=== PATIENT | female | born 1965 | race Caucasian/White ===

== ENCOUNTER → 2017-12-13 09:09 | Outpatient (CLI) | payer BC, SELFPAY ==
--- NOTE | 2017-12-13 09:19 | XR_ITS ---
XR chest 2V HISTORY: ITS.REASON: CHEST PAIN ORDERING PHYSICIAN: Jaskaran Guerra PATIENT AGE: 52 years COMPARISON: None FINDINGS: The cardiomediastinal silhouette and pulmonary vascularity are within normal limits. There are several left-sided small pulmonary nodules which are felt to be due to calcified granulomas. This could be confirmed with CT clinically warranted.. The right lung is clear. No lobar consolidation or collapse. No acute bony anomalies. IMPRESSION: Old granulomatous disease, no acute finding
== END ==
PROVIDERS: PCP Internal Medicine; Referring Provider Internal Medicine; Visit Provider Internal Medicine
DX: R07.9 Chest pain, unspecified (principal)
CPT/HCPCS: 71046; 93005

== ENCOUNTER 2020-03-08 18:54 | Emergency (ER) | payer BC, SELFPAY ==
[2020-03-08 19:15] VITALS: BP 155/81; PULSE 91; RESP 18; TEMP 37.1; O2SAT 99; BMI 32.3
--- NOTE | 2020-03-08 19:22 | HMH.EDUTC ---
[facility] Disposition Clinical Impression: Influenza A, Encounter for laboratory testing for COVID-19 virus Disposition: Home, Self-Care Condition on Discharge: Good Instructions: Preventing the Spread of Coronavirus Discharge Instructions, Influenza, How to Avoid a Cold or Flu Additional Instructions: ? Too late to start Tamiflu. Most effective when started within 48 hours of symptoms onset ? Lots of rest ? Increase Fluids water, Gatorade, powerade, pedialyte,if infant/toddler/child ? Alternate Tylenol and / or ibuprofen as discussed for fever, aches, chills Follow up IMMEDIATELY with your family doctor for new or worsening Symptoms OR no noticeable improvement over the next 48-72 hours, 911 for difficulty or breathing ? You or your child area contagious until no fever, aches, chills for 24 hours with medication for symptoms ? Help Prevent the spread of influenza: ? Wash your hands often. Use soap and water. Wash your hands after you use the bathroom, change a child's diapers, or sneeze. Wash your hands before you prepare or eat food. Use gel hand cleanser that has 60% alcohol, when soap and water are not available. Do not touch your eyes, nose, or mouth unless you have washed your hands first. ? Cover your mouth when you sneeze or cough. Cough into a tissue or the bend of your arm. If you use a tissue, throw it away immediately and wash your hands. ? Clean shared items with a germ-killing glass mould cleaner. Clean table surfaces, doorknobs, and light switches. Do not share towels, silverware, and dishes with people who are sick. Wash bed sheets, towels, silverware, and dishes with soap and water. ? Wear a mask over your mouth and nose if you are sick. The face mask may help protect others from becoming infected with the flu. Wear the mask when in common areas of your home or if you seek care with a healthcare provider. ? Stay away from others if you are sick. Stay at home until 24 hours after your fever and symptoms are gone. You was tested for today for COVID19 your test result should be back in the next 24-48 hours, you may call to the [facility] tomorrow to see if your test results are back however could take up to 48 hours before results are back [phone] [facility] hours are 9am-9pm You was given a handout with instructions for Self Quarantine and Self isolation for while you wait on test results and what to do if they are positive If you are positive the Health Dept will be contacting you also Prescriptions: Fluticasone Propionate [Flonase 50mcg nasal spray 16gm] 1 spr NS DAILY #1 bottle Transmission Status: Pending to [facility] Benzonatate [Tessalon Perle 100mg Cap*] 100 mg PO TID PRN #15 cap PRN Reason: Cough Transmission Status: Pending to [facility] Referrals: Nesha Win MD [Primary Care Provider] - As needed Forms: Work/School Release Time of Disposition: 19:43 Medical Decision Making - Juan F Inquiry Pt receiving controlled substance: No Juan F was queried for this patient: No Vital Signs: 03/08/20 19:15 03/08/20 19:36 Temperature 98.7 F 98.7 F Temperature Source Oral Pulse Rate 91 H Pulse Rate [Left] 91 H Respiratory Rate 18 18 Blood Pressure 155/81 H Blood Pressure [Right Arm] 155/81 H Blood Pressure Mean [Right Arm] 105 Blood Pressure Source [Right Arm] Manual Cuff/ Doppler Blood Pressure Position [Right Arm] Sitting 02 Sat by Pulse Oximetry 99 Oxygen Delivery Method Room Air - Lab Data Lab results reviewed: Yes: I reviewed the patient's lab results. Orders (Tests/Meds): ORDERS Category Date Time Status Covid-19 Nasal PCR Sendout Willie Stat Lab 03/08/20 19:23 Ordered Medical Decision Narrative: Discussed Tamiflu and fact that patient has not been feeling well for longer than 48 hours and patient declined tamiflu [facility] HPI - General Stated complaint: cough,muscle pain Time Seen by Provider: 03/08/20 19:22 Mode of Arrival: Ambulatory Source of Information: Patient Limitati
[2020-03-08 19:36] VITALS: BP 155/81; PULSE 91; RESP 18; TEMP 37.1; O2SAT 99
[2020-03-08 19:46] LABS: UTC Influenza A Antigen Positive (Negative)
[2020-03-08 19:47] LABS: UTC Influenza B Antigen Negative (Negative)
[2020-03-10 13:27] LABS: Covid-19 Nasal PCR Sendout Lex NOT DETECTED
== END 2020-03-08 19:46 | disposition home or self-care (01) ==
PROVIDERS: Emergency Provider Nurse Practitioner; PCP Internal Medicine
DX: J10.1 Influenza due to other identified influenza virus with other respiratory manifestations (principal); Z20.828 Contact with and (suspected) exposure to other viral communicable diseases; Z88.0 Allergy status to penicillin
CPT/HCPCS: 87804; 99201; U0004

== ENCOUNTER → 2021-05-18 10:02 | Outpatient (CLI) | payer BC, SELFPAY ==
[2021-05-18 10:33] LABS: Basophils # 0.1 K/mm3 (0-0.2); Basophils % 1.6 % (0.1-2.0); Eosinophils # 0.2 K/mm3 (0.0-0.4); Eosinophils % 3.2 % (0.1-12.0); Hematocrit 42.3 % (37.0-47.0); Hemoglobin 13.4 g/dL (12.2-16.2); Lymphocytes % 32.6 % (10-50); Mean Corpuscular HGB Conc 31.7 g/dL (31.8-35.4); Mean Corpuscular Hemoglobin 27.4 pg (27.0-31.2); Mean Corpuscular Volume 86.3 fl (81-99); Mean Platelet Volume 7.6 fl (7.4-10.4); Monocytes # 0.3 K/mm3 (0.1-1.0); Neutrophils # 3.6 K/mm3 (1.8-7.8); Neutrophils % 57.5 % (37.0-80.0); Platelet Count 329 K/mm3 (142-424); Red Cell Distribution Width 14.2 % (11.5-17.5); White Blood Count 6.2 K/mm3 (4.8-10.8)
[2021-05-18 11:22] LABS: Alanine Aminotransferase 13 U/L (12-78); Albumin Level 3.8 g/dl (3.5-5.0); Albumin/Globulin Ratio 1.5 (1.1-1.8); Alkaline Phosphatase 105 U/L (38-126); Anion Gap 8.3 mEq/L (5-15); Aspartate Amino Transferase 23 U/L (14-36); Bilirubin,Total 0.8 mg/dl (0.2-1.3); Blood Urea Nitrogen 15 mg/dl (7-17); Calcium 8.7 mg/dl (8.4-10.2); Carbon Dioxide 31 mmol/L (22.0-30.0); Chloride 106 mmol/L (98-107); Estimated Glomerular Filt Rate 65 ml/min (>60); GFR (African American) 79 ML/MIN (>60); Globulin 2.6 g/dL (1.3-3.2); Glucose 96 mg/dl (74-100); Potassium 4.3 mmoL/L (3.5-5.1); Sodium 141 mmol/L (136-145); Total Protein,Serum 6.4 g/dl (6.3-8.2)
[2021-05-18 11:28] LABS: C-Reactive Protein 6.9 mg/L (0-4)
[2021-05-18 12:50] LABS: Erythrocyte Sedimentation Rate 26 mm/hr (0-30)
== END ==
PROVIDERS: PCP Internal Medicine; Visit Provider Internal Medicine
DX: M35.9 Systemic involvement of connective tissue, unspecified (principal); Z79.899 Other long term (current) drug therapy
CPT/HCPCS: 36415; 80053; 85025; 85651; 86140

== ENCOUNTER 2023-10-04 18:15 | Emergency (ER) | payer BC, SELFPAY ==
[2023-10-04 18:16] VITALS: BP 124/92; PULSE 88; RESP 20; TEMP 36.6; O2SAT 98; BMI 30.2
--- NOTE | 2023-10-04 18:37 | XR_ITS ---
PROCEDURE INFORMATION: Exam: XR Right Elbow Exam date and time: 10/04/2023 6:44 PM Age: 58 years old Clinical indication: Injury or trauma; Fall; Blunt trauma (contusions or hematomas); Shoulder; Right; Additional info: Fall, right elbow pain TECHNIQUE: Imaging protocol: Radiologic exam of the right elbow. Views: 3 or more views. COMPARISON: CR XR HUMERUS RT 04/10/2023 18:44 FINDINGS: Bones/joints: No acute fracture or dislocation. Soft tissues: Normal. IMPRESSION: No acute fracture or dislocation.
--- NOTE | 2023-10-04 18:37 | XR_ITS ---
PROCEDURE INFORMATION: Exam: XR Right Humerus Exam date and time: 10/04/2023 6:44 PM Age: 58 years old Clinical indication: Injury or trauma; Fall; Blunt trauma (contusions or hematomas); Shoulder; Right; Additional info: Fall, posterior pain TECHNIQUE: Imaging protocol: Radiologic exam of the right humerus. Views: 2 or more views. COMPARISON: CR XR SHOULDER RT MIN 2V 04/10/2023 18:44 FINDINGS: Bones/joints: No acute fracture or dislocation. Soft tissues: Normal. IMPRESSION: No acute fracture or dislocation.
--- NOTE | 2023-10-04 18:37 | XR_ITS ---
PROCEDURE INFORMATION: Exam: XR Right Shoulder Exam date and time: 10/04/2023 6:44 PM Age: 58 years old Clinical indication: Injury or trauma; Fall; Blunt trauma (contusions or hematomas); Shoulder; Right; Additional info: Fall, R shoulder pain posteriorly TECHNIQUE: Imaging protocol: Radiologic exam of the right shoulder. Views: 2 or more views. COMPARISON: CR XR HUMERUS RT 04/10/2023 18:44 FINDINGS: Bones/joints: Moderate osteoarthrosis of the acromioclavicular joint. No acute fracture or dislocation. Soft tissues: Normal. IMPRESSION: No acute fracture or dislocation.
[2023-10-04] MEDS: LIDOCAINE 5% TRANSDERMAL PATCH 1 EACH TP (18:43)
[2023-10-04] MEDS: DEXAMETHASONE 4MG TABLET 10 MG PO (18:43)
[2023-10-04] MEDS: IBUPROFEN 600 MG TABLET PO (18:44)
[2023-10-04] MEDS: ACETAMINOPHEN 500MG TAB 1000 MG PO (18:44)
--- NOTE | 2023-10-04 18:54 | ED_ITS ---
Discharge Plan Disposition Patient Disposition: Home, Self-Care Prescriptions Prescriptions: New lidocaine 5 % adhesive patch,medicated 1 patch topical DAILY Qty: 30 0RF Rx Instructions: leave on most painful area for up to 12 hrs prednisone 20 mg tablet 40 mg PO DAILY 5 Days Qty: 10 0RF No Action azithromycin [Zithromax Z-Joe] 250 mg tablet See Rx Instructions PO .COMPLEX Qty: 6 0RF Rx Instructions: For 250 mg dose pack: take 500 mg today (day 1), then 250 mg for 4 days (days 2-5) PO oujspdkbikkoioq-qfoivlycx-PR [Bromfed DM] 2-30-10 mg/5 mL syrup 7.5 ml PO Q4-6H PRN (Reason: cold symptoms) Qty: 200 0RF Referrals Follow up/Referrals: Nesha Win MD [Primary Care Provider] - See instructions Activity Restrictions/Add. Instructions Additional Instructions/Restrictions: Call your family doctor to establish care for this visit to the emergency department and schedule follow-up within 48 hours to ensure improvement. If you have any worsening of your condition or any other concerning signs or symptoms, return to the emergency department or your primary care doctor for further evaluation. Clinical Impressions Clinical Impression: Acute pain of right shoulder, Neurapraxia of right upper extremity Discharge ED Provider: Fam Ruiz General Adult HPI General Chief complaint: Extremity Injury, Upper Stated complaint: Ao06/29@1800 fall RT shoulder inj Time Seen by Provider: 10/04/23 18:21 Mode of Arrival: Ambulatory Source of Information: Patient Limitations: No Limitations Description of Symptoms (Recalled from ER Triage Doc. by RN): pt got tripped and landed on right shoulder an now has pain in shoulder that radiates down into forearm. pt PMS intact, pt does have pain upon movement History of Present Illness HPI narrative: Please note that above description of symptoms, in this electronic medical record under categorization of recalled from ER triage doctor by RN are reflective of an initial nursing assessment, however, is not reflective of my full history and physical exam that was personally taken and clarified. Consequentially, this preceding description of symptoms, which may include the patient's categorized chief complaint in the EMR, do not reflect my personal clinical impression, and the ultimate description of history of present illness and patient stated complaints should be deferred to this section of the note. Unless stated otherwise or congruent with this section of the note, additional signs, symptoms, or incongruence should be interpreted as inaccurate with my clinical impression. Related Data Previous Rx's Medication Instructions Recorded azithromycin 250 mg tablet See Rx Instructions PO .COMPLEX #6 04/04/22 (Zithromax Z-Joe) tabs ykmhococirydswm-wzquuobsbjddfii-RC 7.5 ml PO Q4-6H PRN cold symptoms 04/04/22 2 mg-30 mg-10 mg/5 mL oral syrup #200 mL (Bromfed DM) lidocaine 5 % topical patch 1 patch topical DAILY #30 ea 10/04/23 prednisone 20 mg tablet 40 mg (2 x 20 mg) PO DAILY 5 days 10/04/23 #10 tabs Allergies Allergy/AdvReac Type Severity Reaction Status Date / Time Penicillins Allergy Mild Hives Verified 04/04/22 09:13 [facility] Disclaimer: The information contained in this section may have been updated after the patient was seen, as this information can be updated by other users. Social History Smoking Status: Never smoker second hand exposure: No alcohol intake: current alcohol intake frequency: a few times a month current occupational status: employed Travel in the last 8 weeks: None housing: house caffeine: Yes ROS Obtained: Yes All systems reviewed & no additional complaints except as documented Physical Exam General General appearance: alert and in no apparent distress Head Head exam: atraumatic and normocephalic Eye Eye exam: Present normal appearance, PERRL and EOMI ENT ENT exam: Present mucous membranes moist Neck Neck exam: Present normal inspection, full ROM and trachea midline Respiratory Respiratory exam: Absent respiratory distress, wheezes, stridor, accessory muscle use or prolonged expiratory phase Cardiovascular Cardiovascular exam: Present normal rhythm Abdominal Exam Abdominal exam: Present soft; Absent distention, tenderness, guarding, rebound or rigidity Extremities Exam Extremities exam: Present other (Severe pain with range of motion of shoulder including active and passive range of motion on the right side. Joint space intact, neurovascularly intact, no obvious outward signs of injury or deformity.); Absent edema Neurological Exam Neurological exam: Present alert, oriented X3, CN II-XII intact and normal gait; Absent motor sensory deficit Skin Skin exam: Present warm and dry; Absent diaphoresis or erythema Medical Decision Making Medical Records Medical records reviewed: Yes I reviewed the patient's medical records. Juan F Inquiry Pt receiving controlled substance: No Juan F was queried for this patient: No Vital Signs: 10/04/23 18:16 Temperature 97.9 F Temperature Source Oral Pulse Rate [Right Radial] 88 Respiratory Rate 20 Blood Pressure [Right Arm] 124/92 H Blood Pressure Mean [Right Arm] 102 02 Sat by Pulse Oximetry 98 Oxygen Delivery Method Room Air Orders (Tests/Meds): ED MEDICATIONS Discontinued Medications Generic Name Dose Route Start Last Admin Trade Name Conrad PRN Reason Stop Dose Admin Acetaminophen 1,000 mg 10/04/23 18:37 10/04/23 18:44 Acetaminophen 500mg Tab PO 10/04/23 18:38 1,000 mg ONCE ONE Administration Dexamethasone 10 mg 10/04/23 18:37 10/04/23 18:43 Dexamethasone 4mg Tablet PO 10/04/23 18:38 10 mg ONCE ONE Administration Ibuprofen 600 mg 10/04/23 18:37 10/04/23 18:44 Ibuprofen 600 Mg Tablet PO 10/04/23 18:38 600 mg ONCE ONE Administration Lidocaine 1 each 10/04/23 18:37 10/04/23 18:43 Lidocaine 5% Transdermal Patch TP 10/04/23 18:38 1 each ONCE ONE Administration ORDERS Category Date Time Status Elbow XR right minimum 3 views [XR elbow RT min 3V] Exams 10/04/23 18:37 Completed Stat Humerus XR right [XR humerus RT] Stat Exams 10/04/23 18:37 Taken Shoulder XR right miminum 2 views [XR shoulder RT min Exams 10/04/23 18:37 Completed 2V] Stat Medical Decision Narrative: 58-year-old female no relevant medical history presenting with right upper extremity pain. 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 Tripped over a rug. Landed on her right upper extremity with her elbow flexed at 90 degrees. Had immediate pain in the posterior aspect of her right shoulder that is sharp, burning, radiates from the back of her neck down posterior aspect of her right shoulder into her right elbow. No weakness, no neck pain, no loss of consciousness, no other concerns. Has not taken anything for pain. History was obtained via conversation with patient. On arrival, patient hemodynamically stable, alert, oriented x4, appropriate, GCS 15, moving all extremities spontaneously, pupils equal and reactive to light. Full physical exam performed and significant for intermittently having bouts of pain causing patient to brace her right shoulder. Ranging shoulder largely without issue including flexion, extension, but abduction is limited secondary to severe pain. Neurovascularly intact. No outward signs of injury or deformity. Not exacerbated with leaning her head away from the injury. Differential includes fracture, sprain, dislocation, neurovascular injury, among others. Patient given Tylenol, Motrin, Decadron, lidocaine patch. X-rays negative on independent rotation. On reevaluation, patient feeling much better. Pain is still there, but significantly decreased. Because patient at baseline without signs or symptoms of clinical decompensation, deemed appropriate for discharge. Results were relayed to patient who voiced understanding and were agreeable to outpatient management and follow up. I discussed my clinical impression with patient and answered all questions. At this time, the evidence for any other entities in the differential is insufficient to warrant any further testing or ED observation. This was explained as well. Advisory was given that persistent or worsening symptoms require further evaluation. I confirmed the understanding of this discussion. [employer] disclaimer Much of this encounter note is an electronic grants assistant spoken language to printed text. Electronic grants assistant of the spoken language may permit errors. Although I have reviewed the note, some errors may still exist. Critical Care Critical Care Time Critical Care Time: No
--- NOTE | 2023-10-04 19:24 | PC.NURSE ---
Rounded on patient, no needs at this time.
[2023-10-04 20:10] VITALS: BP 108/67; PULSE 104; RESP 20; TEMP 36.7; O2SAT 99
== END 2023-10-04 20:12 | disposition home or self-care (01) ==
PROVIDERS: Emergency Provider Emergency Medicine; PCP Internal Medicine
DX: M25.511 Pain in right shoulder (principal); S44.91XA Injury of unspecified nerve at shoulder and upper arm level, right arm, initial encounter; W01.10XA Fall on same level from slipping, tripping and stumbling with subsequent striking against unspecified object, initial encounter
CPT/HCPCS: 73030; 73060; 73080; 99283

== ENCOUNTER 2024-04-01 09:00 | Outpatient (RCR) | payer BC, SELFPAY | END 2024-04-01 23:59 | disposition home or self-care (01) | LOC: PT 09:00 | PROVIDERS: PCP Internal Medicine; Visit Provider Physician Assistant | DX: M17.11 Unilateral primary osteoarthritis, right knee (principal) | CPT/HCPCS: 97110; 97163; 97530 ==

== ENCOUNTER 2025-01-24 22:12 | Inpatient (IN) | payer BC, SELFPAY ==
--- OUTSIDE RECORDS SUMMARY | 2025-01-24 05:45 | XMS_ITS ---
Author Organization [facility] Address [address] [place] [address] Care Team Providers Care Mumps Developer Name Role Phone Hemant Ирина Unavailable [phone] REASON FOR VISIT Annual Social History Sex Assigned At : Social History Observation Description Sex Assigned At Female Encounters Encounter Location Date Provider Diagnosis [facility] [address] [place] [address] 01/24/2025 Ирина Marcos Plan Of Treatment Next Appt Details Provider Name:Ирина Marcos , 02/14/2025 02:15:00 PM, [address], [place], [address], Progress Notes * Eufemia CORREIA BDOB:[birth year] (59 yo F)Acc No.[id number]:01/24/2025 Progress Note Patient: Eufemia Roth Provider: Elliott Marcos MD :1965 A ge:59 Y S ex:Female Date:01/24/2025 Address:[address], [id number] Subjective: * Chief Complaints: * A nnual * Electronic signature of Radha Marcos MD on 01/25/2025 at 11:51 AM EDT Sign off status: Pending Visit Status: R /S (Rescheduled) * Provider: Elliott Marcos MD Date: 1 Generated for Madai lancastre/Leon/Adelaida on: 1 11:51 AM EDT
[2025-01-24 22:22] VITALS: BP 137/93; PULSE 79; RESP 18; TEMP 36.5; O2SAT 99; BMI 25.7
[2025-01-24 22:28] LABS: Microscopic, Urine URINE MICROSCOPIC (MICROSCOPIC)
--- OUTSIDE RECORDS SUMMARY | 2025-01-24 22:31 | XMS_ITS | Clinical Summary ---
Author Organization [facility] Address [address] [place] [address] Care Team Providers Care Business Reporter Name Role Phone Nesha Win MD Primary Care Provider [phone] Allergies Active Allergy Reactions Criticality Noted Date Comments Penicillins Rash Low 08/11/2018 Keflex ok to have Medications hepatitis A vaccine (VAQTA) 50 UNIT/ML injection Inject 1 mL into the appropriate muscle as directed by prescriber. Repeat in 6 months. 1 mL 1 02/16/2018 1:50 PM EST 8 Active buPROPion XL (WELLBUTRIN XL) 150 MG 24 hr tablet 9 Active celecoxib (CeleBREX) 200 MG capsule 150 mg Daily. 9 Active levothyroxine (SYNTHROID, LEVOTHROID) 100 MCG tablet 9 Active Liraglutide -Weight Management (SAXENDA SC) Inject under the skin into the appropriate area as directed. Active omeprazole (priLOSEC) 20 MG capsule Take 1 capsule by mouth Daily. Active cyclobenzaprine (FLEXERIL) 10 MG tablet Take 1 tablet by mouth 3 (Three) Times a Day As Needed for Muscle Spasms. 12 tablet 3 Active Active Problems No known active problems Immunizations Immunization Administration Dates Next Due COVID-19 (PFIZER) Purple Cap Monovalent 05/10/19 21,04/20/2020 Family History Medical History Relation Name Comments Osteoarthritis Father Cancer Mother Relation Name Status Comments Father Mother Social History Tobacco Use Types Packs/Day Years Used Date Smoking Tobacco: Never Smokeless Tobacco: Never Alcohol Use Standard Drinks/Week Comments Yes 0 (1 standard drink = 0.6 oz pur e alcohol) occ AUDIT-C Answer Date Recorded Frequency of Alcohol Consumption Never 08/11/2018 Average Number of Drinks Not on file 019 Frequency of Binge Drinking Not on file 10/2018 Abuse Screen Answer Date Recorded Feels Unsafe at Home or Work/School no 08/11/2022 Feels Threatened by Someone no 10/2022 Does Anyone Try to Keep You From Having Contact with Others or Doing Things Outside Your Home? no 08/11/2022 Physical Signs of Abuse Present no 08/11/2022 Comments No Sex and Gender Information Value Date Recorded Sex Assigned at Not on file Legal Sex Female 11:26 AM EDT Gender Identity Not on file Sexual Orientation Not on file Last Filed Vital Signs Vital Sign Reading Time Taken Comments Blood Pressure 161/94 08/11/2022 10:58 AM EDT Pulse 84 08/11/2022 10:58 AM EDT Temperature 36.4 C (97.5 F) 08/11/2022 10:58 AM EDT Respiratory Rate 16 08/11/2022 10:58 AM EDT Oxygen Saturation 98% 08/11/2022 10:58 AM EDT Inhaled Oxygen Concentration - - Weight 77.6 kg (171 lb) 02/16/2024 10:55 AM EST Height 165.1 cm (5' 5 ) 02/16/2024 10:55 AM EST Body Mass Index 28.46 02/16/2024 10:55 AM EST Plan of Treatment Health Maintenance Due Date Last Done Comments Annual Gynecologic Pelvic an d Breast Exam 1965 MAMMOGRAM 2005 COLOGUARD 2010 COLON CANCER SCREENING 5 YEA R SIGMOIDOSCOPY 2010 COLONOSCOPY 2010 [address] CANCER SCREENING 2010 CT COLONOGRAPHY 2010 FECAL OCCULT BLOOD TEST 2010 FIT Testing (1 year) 2010 Pneumococcal Vaccine 50+ (1 of 1 - PCV) 2015 ANNUAL PHYSICAL 08/07/2018 HEPATITIS C SCREENING 08/07/2018 PT PLAN OF CARE 02/28/2019 11/30/2018 INFLUENZA VACCINE 11/05/2024 01/14/2023, 04/07/2021 TDAP/TD VACCINES (2 - Td or Tdap) 04/07/2031 022 ZOSTER VACCINE Completed 04/07/2021, 06/0 04/2020, 02/18/2019 Insurance [id number] PPO Care Teams Business Reporter Relationship Specialty Start Date End Date Nesha Win MD [address] [place] [address] PCP - General Internal Medicine 08/11/18
[2025-01-24 22:32] LABS: Bilirubin,Urine Negative (Negative); Color,Urine YELLOW (Yellow); Glucose,Urine (UA) Negative (Negative); Ketones,Urine TRACE (Negative); Leukocyte Esterase,Urine TRACE (Negative); PH,Urine 6.0 (5.0-8.5); Protein,Urine Negative (Negative); Specific Gravity, Urine 1.020 (1.005-1.030); Urobilinogen,Urine 0.2 EU/dl (0.2)
--- OUTSIDE RECORDS SUMMARY | 2025-01-24 22:33 | XMS_ITS | Patient Health Record ---
Author Organization [facility] Address [address] [place] [address] Care Team Providers Care Business Planning Director Name Role Phone Ирина Marcos Unavailable [phone] Bethanie Romero Unavailable [phone] Allergies Allergen (clinical drug ingredient) Drug/Non Drug Allergy documented on EMR Reaction Allergy Type Onset Date Status PENICILLIN V POTASSI UM (PENICILLIN V POTASSIUM TAB rash Drug Allergy Active Results Component Value Reference Range Notes MRI BREAST BILATERAL SCREENI NG W WO CONTRAST Reviewed date:02/26/2024 01:55:32 PM Interpretation:BIRAD 2 Benign, follow up in one year Performing Lab: Notes/Report: BILATERAL BREAST MRI HISTORY: 58 years BRCA positive, high risk, screening exam. History of bilateral prophylactic mastectomies with implant reconstruction in 2007. TECHNIQUE: MRI was performed on a 1.5 Jane magnet utilizing an 8 channel Sentinelle breast coil. Pre-contrast spin-echo T1 weighted and T2 weighted sequences were obtained in the axial plane. Routine dynamic images were performed following the administration of 16 ml of Multihance contrast. Four postcontrast runs were obtained. No contrast complications occurred. Delayed high resolution post contrast T1 weighted sagittal images were also obtained. A CAD system (Fliiby) was utilized for data analysis. COMPARISON: Prior breast MRI dated 12/21/2021. FINDINGS: Contrast is noted in the heart and great vessels. Minimal background parenchymal enhancement is noted bilaterally. Evidence of bilateral prophylactic mastectomies with silicone implant reconstruction is noted. The retropectoral silicone implants bilaterally are intact without evidence of implant rupture. No suspicious masslike nor [id number] enhancement is noted bilaterally. No suspicious axillary nor internal mammary adenopathy is noted bilaterally. BI-RADS 2, benign findings. RECOMMENDATIONS: Consider annual screening breast MRI. BI-RADS CATEGORY: BI-RADS 2, benign findings. This report was finalized on 02/19/2024 3:[address] Young Norton MD. Signed by: Young Norton on 02/19/2024 3:59 PM Category/ Diagnosis- High Risk/ BRCA+ Date of last cycle/ HRT- hysterectomy/ no HRT Personal Hx of Breast ca- No Family Hx breast ca- Yes Maternal Grandmother (29), 1st cousin (age of dx unknown) Any New palpable lumps/breast pain/skin cysts?- No Breast surgery?- Prophylactic mastectomies with silicone implants 2007 Last Mammogram: N/A Date of Last Breast MRI: 12/21/2021 implants only Contrast- 16 mL Multihance Axial FOV: 340 Sag FOV: 250 Arms Prior: Down Arms Today: Down Any vaccines within the last 3 months: No Today's weight (lb): 171 Reason for Exam:->BRCA2 + HIGH RISK SCREENING Reason For Referral No Information Medications Medication SIG (Take, Route, Frequency, Duration) Notes Start Date End Date Status buPROPion HCl ER (XL) 150 MG Tablet Extended Release 24 Hour Take 1 tablet by mouth once daily; Duration: 90 Active CeleBREX Active Omeprazole Active Synthroid Active Zepbound 7.5 MG/0.5ML Solution Auto-injector 0.5mL Subcutaneous Weekly; Duration: 90 days Active Social History Tobacco Use: Social History Observation Description Date Details (start date - stop date) Never Smoker NA - NA Sex Assigned At : Social History Observation Description Sex Assigned At Female Social History Drugs/Alcohol: Social Info Question Answer Notes Drugs Have you used drugs other than those for medical reasons in the past 12 months? No Alcohol Screen Did you have a drink containing alcohol in the past year? Yes How often did you have a drink containing alcohol in the past year? Monthly or less (1 point) Points 1 Interpretation Negative Tobacco Use: Social Info Question Answer Notes Tobacco Use/Smoking Are you a nonsmoker Additional Details Category Social Info Options Details Miscellaneous: Caffeine: CAFFEINE USE: 7 Migrated Social History Drug/Alcohol: den ies/ Yes, monthly or less Problems Problem Type SNOMED Code ICD Code Onset Dates Problem Status W/U Status Risk Notes Problem Gynecological examination normal (193377831354995 ) Cervical smear, as part of routine gynecological examination (Z01.419) 08/20/19 17 Active confirmed Annual without abnormal findings Problem Body mass index 30.00 to 34.99 (893627712698258 ) BMI 31.0-31.9,adult (Z68.31) Active confirmed Problem Personal history of primary malignant neoplasm of breast (727738605) Personal history of breast cancer (Z85.3) Active confirmed Problem Silicone breast implant in situ (Z98.82) Active confirmed Plan Of Treatment Next Appt Details Provider Name:Ирина Marcos , 02/14/2025 02:15:00 PM, [address] , [facility] [address], [place], [address], Insurance Providers Payer Name Payer Address Payer Phone Subscriber Number Group Number Insured Name Patient Relationship to Insured Coverage Start Date Coverage End Date Maurice GARRETTO [address] [place] [address] [id number] Eufemia Knag Self - patient is the insured 2 Medical (General) History Medical History History ICD Code Hypothyroid Positive BRCA s/p mastectomy, hysterecto my and BSO Stroke Liver disease Surgical History Surgery Date(Month/Year) Bilateral mastectomy 02/2008 Hysterectomy 06/2007 T&A 1972 Cholecystectomy Hospitalization History Reason Date(Month/Year) surgery
--- NOTE | 2025-01-24 22:38 | CT_ITS ---
PROCEDURE INFORMATION: Exam: CT Abdomen And Pelvis With Contrast Exam date and time: 01/24/2025 11:20 PM Age: 59 years old Clinical indication: Abdominal pain; Other: Llq pain; Additional info: Llq abdominal tenderness TECHNIQUE: Imaging protocol: Computed tomography of the abdomen and pelvis with contrast. Radiation optimization: All CT scans at this facility use at least one of these dose optimization techniques: automated exposure control; mA and/or kV adjustment per patient size (includes targeted exams where dose is matched to clinical indication); or iterative reconstruction. Contrast material: ISOVUE; Contrast volume: 75 ml; Contrast route: IV; COMPARISON: No relevant prior studies available. FINDINGS: Lungs: There are several calcified granulomas at the left lung base. Liver: Normal. No mass. Gallbladder and biliary ducts: The gallbladder is absent. There is no biliary ductal dilation. Pancreas: Normal. No ductal dilation. Spleen: Normal. No splenomegaly. Adrenal glands: Normal. No mass. Kidneys and ureters: Normal. No hydronephrosis. Stomach and bowel: There is a spigelian hernia within the left lower quadrant containing a loop of small bowel. There is obstruction of the small bowel at the level of the hernia. Several loops of small bowel proximal to and within the hernia sac are dilated and fluid-filled. There is diffuse colonic diverticulosis without acute inflammation. Appendix: No evidence of appendicitis. Intraperitoneal space: Unremarkable. No free air. No significant fluid collection. Vasculature: Unremarkable. No abdominal aortic aneurysm. Lymph nodes: Unremarkable. No enlarged lymph nodes. Urinary bladder: Unremarkable as visualized. Reproductive: Unremarkable as visualized. Bones/joints: Unremarkable. No acute fracture. Soft tissues: Unremarkable. IMPRESSION: Small bowel obstruction secondary to spigelian hernia within the left lower quadrant. THIS REPORT CONTAINS FINDINGS THAT MAY BE CRITICAL TO PATIENT CARE. The findings were verbally communicated via telephone conference at 12:47 AM EDT on 01/25/[address] Cronin. The findings were acknowledged and understood.
[2025-01-24 22:43] LABS: Hematocrit 45.6 % (37.0-47.0); Hemoglobin 15.2 g/dL (12.2-16.2); Immature Granulocytes % 0.2 %; Mean Corpuscular HGB Conc 33.3 g/dL (31.8-35.4); Mean Corpuscular Hemoglobin 28.4 pg (27.0-31.2); Mean Corpuscular Volume 85.2 fl (81-99); Nucleated Red Blood Cells % 0 %; Platelet Count 327 K/mm3 (142-424); Red Blood Count 5.35 M/mm3 (4.20-5.40); Red Cell Distribution Width-SD 40.9 fL; White Blood Count 8.4 K/mm3 (4.8-10.8)
[2025-01-24 22:44] LABS: Bacteria,Urine 1+ /lpf; Mucus,Urine 1+ /lpf
--- NOTE | 2025-01-24 22:44 | HMH.EDGENADL ---
Discharge Plan Disposition Patient Disposition: Admitted Clinical Impressions Clinical Impression: Irreducible Spigelian hernia, Complete small bowel obstruction Discharge ED Provider: Jaimie Ho General Adult HPI <Jaimie Ho DO - Last Filed: 01/24/25 23:26> General Chief complaint: Abdominal Pain Stated complaint: severe stomach cramps, nausea Time Seen by Provider: 01/24/25 22:16 Mode of Arrival: Ambulatory Source of Information: Patient and Spouse Description of Symptoms (Recalled from ER Triage Doc. by RN): Patient states around 1900 today she began to have LLQ pain she rates 8/10. States the pain radaites around her pelvic area. Patient also complains of nausea with no vomitting. Denies any relief from posture, or rest. described the pain as a sharp stabbing. History of Present Illness HPI narrative: Patient is a 59-year-old female with a past medical history of cholecystectomy and hysterectomy who presents to the emergency department with acute onset left lower quadrant abdominal pain. Patient states that her pain is an 8 out of 10. States that it is sharp nonradiating. Patient reports nausea but no vomiting. Patient reports 1 episode of loose stool. Patient denies any fevers. Patient denies any chest pain or shortness of breath. Patient denies any history of previous similar symptoms. Patient denies any urinary symptoms. Related Data Home Medications ?Medication ?Instructions ?Recorded ?Confirmed bupropion HCl 150 mg 24 hr tablet, 150 mg PO DAILY 01/25/25 01/25/25 extended release celecoxib 200 mg capsule 200 mg PO DAILY 01/25/25 01/25/25 levothyroxine 88 mcg tablet 88 mcg PO DAILY 01/25/25 01/25/25 omeprazole 20 mg capsule,delayed 20 mg PO DAILY 01/25/25 01/25/25 release tirzepatide (weight loss) 10 10 mg SQ WEEKLY 01/25/25 01/25/25 mg/0.5 mL subcutaneous pen injector (Zepbound) Allergies Allergy/AdvReac Type Severity Reaction Status Date / Time Penicillins Allergy Mild Hives Verified 04/04/22 09:13 [facility] <Jaimie Ho DO - Last Filed: 01/24/25 23:26> [facility] Disclaimer: The information contained in this section may have been updated after the patient was seen, as this information can be updated by other users. Medical History (Updated 01/25/25 @ 04:58 by Sarah Mejia RN) Hypothyroidism Family History (Updated 01/25/25 @ 04:58 by Sarah Mejia RN) Mother Ovarian cancer Other Diabetes Heart disease Social History (Updated 01/25/25 @ 04:56 by Sarah Mejia, RN) Smoking Status: Never smoker second hand exposure: No alcohol intake: current alcohol intake frequency: a few times a month substance use type: denies use current occupational status: employed Travel in the last 8 weeks?: None housing: house caffeine: Yes Have you lived/traveled outside [place] in past 30 days?: No Contact w/someone who lives/traveled outside [place] past 30 days?: No Exposure to someone with infectious disease in past 14 days?: No Do you have a fever (greater than 100.4 F or 38 C)?: No Have you tested positive for COVID-19?: No Exposed to someone with COVID-19 in past 14 days?: No Do you have a sore throat?: No Do you have a cough?: No Do you have any weakness?: No Are you experiencing any nausea/vomitting?: No Do you have any diarrhea?: No Are you experiencing any unusual bleeding?: No Do you have any muscle aches/pain?: No Do you have any abdominal pain?: No Are you experiencing loss of taste or smell?: No <Jaimie Ho DO - Last Filed: 01/24/25 23:26> ROS Obtained: Yes All systems reviewed & no additional complaints except as documented and Yes Systems reviewed as appropriate & no additional complaints except as documented Physical Exam <Jaimie Ho DO - Last Filed: 01/24/25 23:26> General General appearance: alert and in no apparent distress Head Head exam: atraumatic, normocephalic and normal inspection Eye Eye exam: Present normal appearance, PERRL and EOMI; Absent scleral icterus ENT ENT exam: Present normal exam and normal external ear exam Neck Neck exam: Present normal inspection and full ROM Chest Chest inspection: Present normal inspection and symmetric chest wall rise Respiratory Respiratory exam: Present normal lung sounds bilaterally; Absent respiratory distress or wheezes Cardiovascular Cardiovascular exam: Present regular rate, normal rhythm and normal heart sounds Abdominal Exam Abdominal exam: Present soft, distention and tenderness (exquisite LLQ abdominal tenderness, no CVA tenderness); Absent guarding or rebound Extremities Exam Extremities exam: Present normal inspection and full ROM Back Exam Back exam: Present normal inspection and full ROM Neurological Exam Neurological exam: Present alert and oriented X3 Psychiatric Psychiatric exam: Present normal affect and normal mood Skin Skin exam: Present warm and dry Medical Decision Making <Jaimie Ho, DO - Last Filed: 01/24/25 23:26> Medical Records Medical records reviewed: Yes I reviewed the patient's medical records. Screening: Per USPSTF and CDC recommendations, given the prevalence of disease in our region, it is our hospital?s policy to screen for HIV and viral Hepatitis for all patients aged 18 and over and those with ongoing risk factors. Juan F Inquiry Pt receiving controlled substance: No Vital Signs: 01/24/25 22:22 01/24/25 23:00 01/25/25 00:02 Temperature 97.7 F Temperature Source Oral Pulse Rate 71 74 Pulse Rate [Left] 79 Respiratory Rate 18 14 18 Blood Pressure 136/77 131/84 Blood Pressure [Right Arm] 137/93 H Blood Pressure Mean 96 Blood Pressure Mean [Right Arm] 107 02 Sat by Pulse Oximetry 99 98 98 Oxygen Delivery Method Room Air 01/25/25 00:34 01/25/25 00:36 01/25/25 00:40 Temperature 98.7 F Temperature Source Pulse Rate 76 78 80 Pulse Rate [Left] Respiratory Rate 18 17 16 Blood Pressure 134/72 115/76 124/76 Blood Pressure [Right Arm] Blood Pressure Mean Blood Pressure Mean [Right Arm] 02 Sat by Pulse Oximetry 95 100 99 Oxygen Delivery Method Nasal Cannula Nasal Cannula 01/25/25 00:42 01/25/25 00:46 01/25/25 00:48 Temperature Temperature Source Pulse Rate 74 71 80 Pulse Rate [Left] Respiratory Rate 16 18 18 Blood Pressure 131/72 129/83 124/80 Blood Pressure [Right Arm] Blood Pressure Mean Blood Pressure Mean [Right Arm] 02 Sat by Pulse Oximetry 95 99 96 Oxygen Delivery Method Nasal Cannula 01/25/25 00:50 01/25/25 00:51 01/25/25 00:59 Temperature 98.7 F 98.7 F Temperature Source Oral Oral Pulse Rate 76 Pulse Rate [Left] 77 76 Respiratory Rate 18 18 17 Blood Pressure 136/80 Blood Pressure [Right Arm] 137/87 136/80 Blood Pressure Mean Blood Pressure Mean [Right Arm] 103 98 02 Sat by Pulse Oximetry 97 96 97 Oxygen Delivery Method Nasal Cannula Room Air Room Air 01/25/25 01:37 01/25/25 01:53 Temperature 97.8 F Temperature Source Pulse Rate 111 H Pulse Rate [Left] 75 Respiratory Rate 17 18 Blood Pressure 126/62 Blood Pressure [Right Arm] 125/78 Blood Pressure Mean Blood Pressure Mean [Right Arm] 93 02 Sat by Pulse Oximetry 95 Oxygen Delivery Method Room Air Room Air Lab Data Lab results reviewed: Yes I reviewed the patient's lab results. Lab Results 01/24/25 22:20: Urine Color Yellow, Urine Appearance Clear, Urine pH 6.0, Ur Specific [place] 1.020, Urine Protein Negative, Urine Glucose (UA) Negative, Urine Ketones Trace, Urine Blood Negative, Urine Nitrate Negative, Urine Bilirubin Negative, Urine Urobilinogen 0.2, Ur Leukocyte Esterase Trace, Urine RBC 3-5, Urine WBC 5-10, Ur Squamous Epith Cells 3-5, Urine Bacteria 1+, Urine Mucus 1+ 01/24/25 22:28: WBC 8.4, RBC 5.35, Hgb 15.2, Hct 45.6, MCV 85.2, MCH 28.4, MCHC 33.3, RDW 13.3, Plt Count 327, MPV 9.5, Neut % (Auto) 60.2, Lymph % (Auto) 30.7, Scurry % (Auto) 5.9, Eos % (Auto) 2.3, Baso % (Auto) 0.7, Neut # (Auto) 5.0, Lymph # (Auto) 2.6, Scurry # (Auto) 0.5, Eos # (Auto) 0.2, Baso # (Auto) 0.1, Sodium 139, Potassium 3.8, Chloride 101, Carbon Dioxide 29, Anion Gap 12.8, BUN 11, Creatinine 0.90, Estimated Creat Clear 75, Estimated GFR 64, Est GFR ( Amer) 78, Glucose 98, Calcium 9.2, Total Bilirubin 0.7, AST 28, ALT 15, Alkaline Phosphatase 106, Total Protein 8.2 D, Albumin 4.5, Globulin 3.7 H, Albumin/Globulin Ratio 1.2, Lipase 104 01/25/25 05:40 01/25/25 05:40 Orders (Tests/Meds): ED MEDICATIONS Generic Name Dose Route Start Last Admin Trade Name Freq PRN Reason Stop Dose Admin Acetaminophen 650 mg 01/25/25 02:22 Acetaminophen 325mg Tab PO 02/24/25 02:21 Q4HP PRN Fever or Mild Pain (1-3) Hydrocodone Bitart/Acetaminophen 1 tab 01/25/25 02:22 Hydrocodone/Apap 5/325 Mg Tablet PO 02/24/25 02:21 Q4HP PRN Moderate Pain (4-6) Hydrocodone Bitart/Acetaminophen 1 tab 01/25/25 03:47 Hydrocodone/Apap 5/325 Mg Tablet PO 02/24/25 03:46 Q4HP PRN Moderate Pain (4-6) Hydromorphone HCl 0.5 mg 01/25/25 03:49 Hydromorphone 2mg/Ml Syringe IV 01/25/25 05:50 Q5MINP PRN Severe Pain (7-10) Cefazolin Sodium 1 gm/ Sodium 50 mls @ 100 mls/hr 01/25/25 04:00 01/25/25 05:58 Chloride IV 02/04/25 03:59 100 mls/hr Q6H DUTCH Administration Ketorolac Tromethamine 30 mg 01/25/25 03:49 Ketorolac 30mg/Ml Vial IV 01/25/25 05:50 ONCE PRN Mild Pain (1-3) Meperidine HCl 12.5 mg 01/25/25 03:49 Meperidine 25mg/Ml 1ml Syringe IV 01/25/25 05:50 Q5MINP PRN Shivering Morphine Sulfate 4 mg 01/25/25 02:23 Morphine 4mg/Ml Syringe IV 02/24/25 02:22 Q4HP PRN Severe Pain (7-10) Morphine Sulfate 1 mg 01/25/25 03:47 Morphine 2mg/Ml Syringe IV 02/24/25 03:46 Q1HP PRN Severe Pain (7-10) Morphine Sulfate 1 mg 01/25/25 03:49 Morphine 2mg/Ml Syringe IV 01/25/25 05:50 Q5MINP PRN Mild Pain (1-3) Naloxone HCl 0.4 mg 01/25/25 03:49 Naloxone 0.4mg/Ml Vial IV 01/25/25 05:50 Q3MINP PRN Decreased Respirations Ondansetron HCl 4 mg 01/25/25 02:22 Ondansetron 4mg/2ml Vial IV 02/24/25 02:21 Q8HP PRN Nausea Ondansetron HCl 4 mg 01/25/25 03:49 Ondansetron 4mg/2ml Vial IV 01/25/25 05:50 Q6HP PRN Nausea Sodium Chloride 10 ml 01/24/25 23:36 01/24/25 23:36 Sodium Chloride 0.9% 10ml Syr (Rad Only) IV 02/23/25 23:35 10 ml NEEDED PRN Administration Maintain IV Site Discontinued Medications Generic Name Dose Route Start Last Admin Trade Name Freq PRN Reason Stop Dose Admin Fentanyl Citrate 100 mcg 01/25/25 00:05 01/25/25 00:06 Fentanyl 100mcg/2ml Vial IV 01/25/25 00:06 100 mcg ONCE ONE Administration Lactated Ringer's 1,000 mls @ 999 mls/hr 01/24/25 22:38 01/25/25 00:29 Lactated Ringer's 1000 Ml Bag IV 01/24/25 23:38 Infused .Q1H1M ONE Infusion Iopamidol 75 ml 01/24/25 23:36 01/24/25 23:36 Iopamidol-370 (76%);100ml Bottle IV 01/24/25 23:37 75 ml ONCE ONE Administration Morphine Sulfate 4 mg 01/24/25 22:38 01/24/25 22:49 Morphine 2mg/Ml Syringe IV 01/24/25 22:39 Not Given ONCE ONE Morphine Sulfate 4 mg 01/24/25 22:48 01/24/25 22:48 Morphine 4mg/Ml Syringe IV 01/24/25 22:49 4 mg ONCE ONE Administration Morphine Sulfate 2 mg 01/25/25 00:56 01/25/25 01:07 Morphine 2mg/Ml Syringe IV 01/25/25 00:57 2 mg ONCE ONE Administration Ondansetron HCl 4 mg 01/24/25 22:38 01/24/25 22:45 Ondansetron 4mg/2ml Vial IV 01/24/25 22:39 4 mg ONCE ONE Administration Ondansetron HCl 4 mg 01/25/25 00:56 01/25/25 01:03 Ondansetron 4mg/2ml Vial IV 01/25/25 00:57 4 mg ONCE ONE Administration Propofol 125 mg 01/25/25 00:58 01/25/25 00:34 Propofol 10mg/Ml 20ml Vial IV 01/25/25 00:59 125 mg ONCE ONE Administration ORDERS Category Date Time Status CT abdomen pelvis w con Stat Cat Scan 01/24/25 22:38 Completed CBC w/Auto Diff [Complete Blood Count Auto Diff] Stat Lab 01/24/25 22:28 Completed CMP [Comprehensive Metabolic Panel] Stat Lab 01/24/25 22:28 Completed Lipase Stat Lab 01/24/25 22:28 Completed Urinalysis and Microscopic Stat Lab 01/24/25 22:20 Completed Urine Culture Stat Micro 01/24/25 22:20 Received Medical Decision Narrative: Patient is a 59-year-old female with a past medical history of cholecystectomy and hysterectomy who presents to the emergency department with left lower quadrant abdominal pain. On arrival, patient was hemodynamically stable with unremarkable vital signs. Differential includes but not limited to: Diverticulitis, gastroenteritis, intra-abdominal abscess, bowel obstruction, nephrolithiasis, amongst others. Patient's labs were reviewed and interpreted by myself: CBC showed no leukocytosis, hemoglobin was stable. UA showed no acute infection. Lipase normal. Patient was given morphine Zofran and IV fluids. Was signed out to the oncoming provider Dr. Cronin pending CT scan and final disposition. <Cristian Cronin MD - Last Filed: 01/25/25 06:39> Vital Signs: 01/24/25 22:22 01/24/25 23:00 01/25/25 00:02 Temperature 97.7 F Temperature Source Oral Pulse Rate 71 74 Pulse Rate [Left] 79 Respiratory Rate 18 14 18 Blood Pressure 136/77 131/84 Blood Pressure [Right Arm] 137/93 H Blood Pressure Mean 96 Blood Pressure Mean [Right Arm] 107 02 Sat by Pulse Oximetry 99 98 98 Oxygen Delivery Method Room Air 01/25/25 00:34 01/25/25 00:36 01/25/25 00:40 Temperature 98.7 F Temperature Source Pulse Rate 76 78 80 Pulse Rate [Left] Respiratory Rate 18 17 16 Blood Pressure 134/72 115/76 124/76 Blood Pressure [Right Arm] Blood Pressure Mean Blood Pressure Mean [Right Arm] 02 Sat by Pulse Oximetry 95 100 99 Oxygen Delivery Method Nasal Cannula Nasal Cannula 01/25/25 00:42 01/25/25 00:46 01/25/25 00:48 Temperature Temperature Source Pulse Rate 74 71 80 Pulse Rate [Left] Respiratory Rate 16 18 18 Blood Pressure 131/72 129/83 124/80 Blood Pressure [Right Arm] Blood Pressure Mean Blood Pressure Mean [Right Arm] 02 Sat by Pulse Oximetry 95 99 96 Oxygen Delivery Method Nasal Cannula 01/25/25 00:50 01/25/25 00:51 01/25/25 00:59 Temperature 98.7 F 98.7 F Temperature Source Oral Oral Pulse Rate 76 Pulse Rate [Left] 77 76 Respiratory Rate 18 18 17 Blood Pressure 136/80 Blood Pressure [Right Arm] 137/87 136/80 Blood Pressure Mean Blood Pressure Mean [Right Arm] 103 98 02 Sat by Pulse Oximetry 97 96 97 Oxygen Delivery Method Nasal Cannula Room Air Room Air 01/25/25 01:37 01/25/25 01:53 Temperature 97.8 F Temperature Source Pulse Rate 111 H Pulse Rate [Left] 75 Respiratory Rate 17 18 Blood Pressure 126/62 Blood Pressure [Right Arm] 125/78 Blood Pressure Mean Blood Pressure Mean [Right Arm] 93 02 Sat by Pulse Oximetry 95 Oxygen Delivery Method Room Air Room Air Lab Data Lab Results 01/24/25 22:20: Urine Color Yellow, Urine Appearance Clear, Urine pH 6.0, Ur Specific [place] 1.020, Urine Protein Negative, Urine Glucose (UA) Negative, Urine Ketones Trace, Urine Blood Negative, Urine Nitrate Negative, Urine Bilirubin Negative, Urine Urobilinogen 0.2, Ur Leukocyte Esterase Trace, Urine RBC 3-5, Urine WBC 5-10, Ur Squamous Epith Cells 3-5, Urine Bacteria 1+, Urine Mucus 1+ 01/24/25 22:28: WBC 8.4, RBC 5.35, Hgb 15.2, Hct 45.6, MCV 85.2, MCH 28.4, MCHC 33.3, RDW 13.3, Plt Count 327, MPV 9.5, Neut % (Auto) 60.2, Lymph % (Auto) 30.7, Scurry % (Auto) 5.9, Eos % (Auto) 2.3, Baso % (Auto) 0.7, Neut # (Auto) 5.0, Lymph # (Auto) 2.6, [place] # (Auto) 0.5, Eos # (Auto) 0.2, Baso # (Auto) 0.1, Sodium 139, Potassium 3.8, Chloride 101, Carbon Dioxide 29, Anion Gap 12.8, BUN 11, Creatinine 0.90, Estimated Creat Clear 75, Estimated GFR 64, Est GFR ( Amer) 78, Glucose 98, Calcium 9.2, Total Bilirubin 0.7, AST 28, ALT 15, Alkaline Phosphatase 106, Total Protein 8.2 D, Albumin 4.5, Globulin 3.7 H, Albumin/Globulin Ratio 1.2, Lipase 104 Orders (Tests/Meds): ED MEDICATIONS Generic Name Dose Route Start Last Admin Trade Name Freq PRN Reason Stop Dose Admin Acetaminophen 650 mg 01/25/25 02:22 Acetaminophen 325mg Tab PO 02/24/25 02:21 Q4HP PRN Fever or Mild Pain (1-3) Hydrocodone Bitart/Acetaminophen 1 tab 01/25/25 02:22 Hydrocodone/Apap 5/325 Mg Tablet PO 02/24/25 02:21 Q4HP PRN Moderate Pain (4-6) Hydrocodone Bitart/Acetaminophen 1 tab 01/25/25 03:47 Hydrocodone/Apap 5/325 Mg Tablet PO 02/24/25 03:46 Q4HP PRN Moderate Pain (4-6) Hydromorphone HCl 0.5 mg 01/25/25 03:49 Hydromorphone 2mg/Ml Syringe IV 01/25/25 05:50 Q5MINP PRN Severe Pain (7-10) Cefazolin Sodium 1 gm/ Sodium 50 mls @ 100 mls/hr 01/25/25 04:00 01/25/25 05:58 Chloride IV 02/04/25 03:59 100 mls/hr Q6H DUTCH Administration Ketorolac Tromethamine 30 mg 01/25/25 03:49 Ketorolac 30mg/Ml Vial IV 01/25/25 05:50 ONCE PRN Mild Pain (1-3) Meperidine HCl 12.5 mg 01/25/25 03:49 Meperidine 25mg/Ml 1ml Syringe IV 01/25/25 05:50 Q5MINP PRN Shivering Morphine Sulfate 4 mg 01/25/25 02:23 Morphine 4mg/Ml Syringe IV 02/24/25 02:22 Q4HP PRN Severe Pain (7-10) Morphine Sulfate 1 mg 01/25/25 03:47 Morphine 2mg/Ml Syringe IV 02/24/25 03:46 Q1HP PRN Severe Pain (7-10) Morphine Sulfate 1 mg 01/25/25 03:49 Morphine 2mg/Ml Syringe IV 01/25/25 05:50 Q5MINP PRN Mild Pain (1-3) Naloxone HCl 0.4 mg 01/25/25 03:49 Naloxone 0.4mg/Ml Vial IV 01/25/25 05:50 Q3MINP PRN Decreased Respirations Ondansetron HCl 4 mg 01/25/25 02:22 Ondansetron 4mg/2ml Vial IV 02/24/25 02:21 Q8HP PRN Nausea Ondansetron HCl 4 mg 01/25/25 03:49 Ondansetron 4mg/2ml Vial IV 01/25/25 05:50 Q6HP PRN Nausea Sodium Chloride 10 ml 01/24/25 23:36 01/24/25 23:36 Sodium Chloride 0.9% 10ml Syr (Rad Only) IV 02/23/25 23:35 10 ml NEEDED PRN Administration Maintain IV Site Discontinued Medications Generic Name Dose Route Start Last Admin Trade Name Freq PRN Reason Stop Dose Admin Fentanyl Citrate 100 mcg 01/25/25 00:05 01/25/25 00:06 Fentanyl 100mcg/2ml Vial IV 01/25/25 00:06 100 mcg ONCE ONE Administration Lactated Ringer's 1,000 mls @ 999 mls/hr 01/24/25 22:38 01/25/25 00:29 Lactated Ringer's 1000 Ml Bag IV 01/24/25 23:38 Infused .Q1H1M ONE Infusion Iopamidol 75 ml 01/24/25 23:36 01/24/25 23:36 Iopamidol-370 (76%);100ml Bottle IV 01/24/25 23:37 75 ml ONCE ONE Administration Morphine Sulfate 4 mg 01/24/25 22:38 01/24/25 22:49 Morphine 2mg/Ml Syringe IV 01/24/25 22:39 Not Given ONCE ONE Morphine Sulfate 4 mg 01/24/25 22:48 01/24/25 22:48 Morphine 4mg/Ml Syringe IV 01/24/25 22:49 4 mg ONCE ONE Administration Morphine Sulfate 2 mg 01/25/25 00:56 01/25/25 01:07 Morphine 2mg/Ml Syringe IV 01/25/25 00:57 2 mg ONCE ONE Administration Ondansetron HCl 4 mg 01/24/25 22:38 01/24/25 22:45 Ondansetron 4mg/2ml Vial IV 01/24/25 22:39 4 mg ONCE ONE Administration Ondansetron HCl 4 mg 01/25/25 00:56 01/25/25 01:03 Ondansetron 4mg/2ml Vial IV 01/25/25 00:57 4 mg ONCE ONE Administration Propofol 125 mg 01/25/25 00:58 01/25/25 00:34 Propofol 10mg/Ml 20ml Vial IV 01/25/25 00:59 125 mg ONCE ONE Administration ORDERS Category Date Time Status CT abdomen pelvis w con Stat Cat Scan 01/24/25 22:38 Completed CBC w/Auto Diff [Complete Blood Count Auto Diff] Stat Lab 01/24/25 22:28 Completed CMP [Comprehensive Metabolic Panel] Stat Lab 01/24/25 22:28 Completed Lipase Stat Lab 01/24/25 22: Completed Urinalysis and Microscopic Stat Lab 01/24/25 22:20 Completed Urine Culture Stat Micro 01/24/25 22:20 Received Medical Decision Narrative: Patient is a 59-year-old female with a past medical history of cholecystectomy and hysterectomy who presents to the emergency department with left lower quadrant abdominal pain. On arrival, patient was hemodynamically stable with unremarkable vital signs. Differential includes but not limited to: Diverticulitis, gastroenteritis, intra-abdominal abscess, bowel obstruction, nephrolithiasis, amongst others. Patient's labs were reviewed and interpreted by myself: CBC showed no leukocytosis, hemoglobin was stable. UA showed no acute infection. Lipase normal. Patient was given morphine Zofran and IV fluids. Was signed out to the oncoming provider Dr. Cronin pending CT scan and final disposition. Roseanne GREEN: I assumed care of the patient at the time of handoff from the prior provider. On reassessment patient remains hemodynamically stable. CT imaging was independently interpreted by me and shows a small bowel obstruction secondary to left lower quadrant abdominal wall hernia, possibly spigelian versus inguinal. I discussed this with the patient and we attempted reduction once with fentanyl without success. A procedural sedation was performed to attempt reduction with propofol. This was also unsuccessful. Given this, I called and spoke with our general surgeon Dr. Galarza who will take the patient to the operating room tonight. Procedures <Cristian Cronin MD - Last Filed: 01/25/25 06:39> Procedural Sedation A heart and lung assessment was performed on this patient at: 00:01 Mallampati Score:: Class I Indication: other (hernia reduction) ASA Class: I IV Propofol dose (mg): 125 Patient Tolerated Procedure: well and no complications Additional Comments: reduction was unsuccessful Miscellaneous Procedure Procedure Performed: Procedure: Hernia reduction Indication: Small bowel obstruction secondary to spigelian hernia Description: The patient was given sedating medications and constant pressure was applied over the bowel and hernia defect in the left lower quadrant abdominal wall. Constant pressure was applied for several minutes. The hernia was slightly reduced in size but was still present. Reduction was ultimately unsuccessful. This procedure was performed by Dr. Roseanne palmer. No complications. Critical Care <Jaimie Ho DO - Last Filed: 01/24/25 23:26> Critical Care Time Critical Care Time: No
[2025-01-24] MEDS: ONDANSETRON 4MG/2ML VIAL 4 MG IV (22:45)
[2025-01-24] MEDS: LACTATED RINGERS 1000ML 1,000 ML 999 ML IV (22:45)
[2025-01-24 22:48] LABS: Albumin Level 4.5 g/dl (3.5-5.0); Chloride 101 mmol/L (98-107); Potassium 3.8 mmoL/L (3.5-5.1); Sodium 139 mmol/L (136-145)
[2025-01-24] MEDS: MORPHINE 4MG/ML SYRINGE 4 MG IV (22:48)
[2025-01-24 22:51] LABS: Alanine Aminotransferase 15 U/L (12-78); Albumin/Globulin Ratio 1.2 (1.1-1.8); Alkaline Phosphatase 106 U/L (38-126); Anion Gap 12.8 mEq/L (5-15); Aspartate Amino Transferase 28 U/L (14-36); Bilirubin,Total 0.7 mg/dl (0.2-1.3); Blood Urea Nitrogen 11 mg/dl (7-17); Calcium 9.2 mg/dl (8.4-10.2); Carbon Dioxide 29 mmol/L (22.0-30.0); Creatinine Clearance Estimated 75 mL/min (50-200); Creatinine,Serum 0.90 mg/dl (0.52-1.04); Estimated Glomerular Filt Rate 64 ml/min (>60); GFR (African American) 78 ML/MIN (>60); Globulin 3.7 g/dL (1.3-3.2); Glucose 98 mg/dl (74-100); Lipase 104 U/L (23-300); Total Protein,Serum 8.2 g/dl (6.3-8.2)
[2025-01-24 23:00] VITALS: BP 136/77; PULSE 71; RESP 14; O2SAT 98
[2025-01-24] MEDS: SODIUM CHLORIDE 0.9% 10ML SYR (RAD ONLY) 10 ML IV (23:36)
[2025-01-24] MEDS: IOPAMIDOL-370 (76%);100ML BOTTLE 75 ML IV (23:36)
[2025-01-25] VITALS (34 sets, daily range): BP systolic 106–137; BP diastolic 60–87; PULSE 71–111; RESP 14–18; TEMP 36.1–38; O2SAT 93–100
[2025-01-25] MEDS: FENTANYL 100MCG/2ML VIAL 100 MCG IV (00:06)
[2025-01-25] MEDS: ONDANSETRON 4MG/2ML VIAL 4 MG IV (01:03)
[2025-01-25] MEDS: MORPHINE 2MG/ML SYRINGE 2 MG IV (01:07)
--- NOTE | 2025-01-25 01:09 | PC.NURSE ---
Procedure reduction of hernia: First dose prop 0034, 50mg second dose 0036 25mg third dose 0038 25mg final dose 0040 25mg. total dose 125mg. Patient was monitored Q2min, vitals noted in chart. Patient awake and oriented post procedure.
--- NOTE | 2025-01-25 01:38 | EXP.GEN.HP ---
HPI HPI HPI: Patient is a 59-year-old female who had developed onset of left lower quadrant pain approximately 7 PM on 01/24/2025 after she had been in yoga class. She had developed some diffuse abdominal bloating and nausea. She has got a prior history of laparoscopic cholecystectomy and laparoscopic assisted vaginal hysterectomy. Pain was severe and rated as an 8 out of 10. She presented to the emergency department. She underwent evaluation and was found to have small bowel obstruction secondary to apparent left lower quadrant spigelian hernia. Attempts were made at reduction without success. Surgery was consulted. [facility] Disclaimer: The information contained in this section may have been updated after the patient was seen, as this information can be updated by other users. Social History Smoking Status: Never smoker second hand exposure: No alcohol intake: current alcohol intake frequency: a few times a month current occupational status: employed Travel in the last 8 weeks?: None housing: house caffeine: Yes Have you lived/traveled outside US in past 30 days?: No Contact w/someone who lives/traveled outside US past 30 days?: No Exposure to someone with infectious disease in past 14 days?: No Do you have a fever (greater than 100.4 F or 38 C)?: No Have you tested positive for COVID-19?: No Exposed to someone with COVID-19 in past 14 days?: No Do you have a sore throat?: No Do you have a cough?: No Do you have any weakness?: No Do you have any diarrhea?: No Are you experiencing any unusual bleeding?: No Do you have any muscle aches/pain?: No Do you have any abdominal pain?: No Are you experiencing loss of taste or smell?: No Meds Home Medications and Allergies Home Medications ?Medication ?Instructions ?Recorded ?Confirmed ?Type azithromycin 250 mg tablet See Rx Instructions PO .COMPLEX #6 04/04/22 04/04/22 Rx (Zithromax Z-Joe) tabs dqisimudcioaikg-deudzeuxiefpphj-PK 7.5 ml PO Q4-6H PRN cold symptoms 04/04/22 04/04/22 Rx 2 mg-30 mg-10 mg/5 mL oral syrup #200 mL (Bromfed DM) lidocaine 5 % topical patch 1 patch topical DAILY #30 ea 10/04/23 Rx prednisone 20 mg tablet 40 mg (2 x 20 mg) PO DAILY 5 days 10/04/23 Rx #10 tabs New Prescriptions to Start Prescriptions: Allergies Allergy/AdvReac Type Severity Reaction Status Date / Time Penicillins Allergy Mild Hives Verified 04/04/22 09:13 Exam Data for Last 24 hours Vital signs and Labs for Last 24 Hours: Temp Pulse Resp BP Pulse Ox O2 Del Method 98.7 F 76 17 136/80 97 Room Air 01/25/25 00:59 01/25/25 00:59 01/25/25 00:59 01/25/25 00:59 01/25/25 00:59 01/25/25 00:59 Laboratory Results - last 24 hr 01/24/25 22:20: Urine Color Yellow, Urine Appearance Clear, Urine pH 6.0, Ur Specific [place] 1.020, Urine Protein Negative, Urine Glucose (UA) Negative, Urine Ketones Trace, Urine Blood Negative, Urine Nitrate Negative, Urine Bilirubin Negative, Urine Urobilinogen 0.2, Ur Leukocyte Esterase Trace, Urine RBC 3-5, Urine WBC 5-10, Ur Squamous Epith Cells 3-5, Urine Bacteria 1+, Urine Mucus 1+ 01/24/25 22:28: WBC 8.4, RBC 5.35, Hgb 15.2, Hct 45.6, MCV 85.2, MCH 28.4, MCHC 33.3, RDW 13.3, Plt Count 327, MPV 9.5, Neut % (Auto) 60.2, Lymph % (Auto) 30.7, [place] % (Auto) 5.9, Eos % (Auto) 2.3, Baso % (Auto) 0.7, Neut # (Auto) 5.0, Lymph # (Auto) 2.6, [place] # (Auto) 0.5, Eos # (Auto) 0.2, Baso # (Auto) 0.1, Sodium 139, Potassium 3.8, Chloride 101, Carbon Dioxide 29, Anion Gap 12.8, BUN 11, Creatinine 0.90, Estimated Creat Clear 75, Estimated GFR 64, Est GFR ( Amer) 78, Glucose 98, Calcium 9.2, Total Bilirubin 0.7, AST 28, ALT 15, Alkaline Phosphatase 106, Total Protein 8.2 D, Albumin 4.5, Globulin 3.7 H, Albumin/Globulin Ratio 1.2, Lipase 104 I & O for Last 24 hours: Intake & Output 01/22/25 01/23/25 01/24/25 01/25/25 11:59 11:59 11:59 11:59 Intake Total 1000 / 1000 Balance 1000 / 1000 Weight 155 lb Constitutional Constitutional: no acute distress *Routine HEENT Exam Head: Present normocephalic Eye: Present EOMI and PERRL ENT: Present mucous membranes moist *Routine Neck Exam Neck: Present supple; Absent lymphadenopathy *Routine Respiratory Exam Respiratory: Present CTA bilaterally *Routine Cardiovascular Exam Cardiovascular: Present RRR *Routine Abdominal Exam Abdominal: Present tenderness Comments: She has some mild diffuse distention. She is tender mostly in the left lower quadrant. Mild diffuse tenderness. *Routine Rectal Exam Rectal:: deferred *Routine Genitalia Exam Genitalia:: deferred *Routine Extremities Exam Extremities: Absent cyanosis, clubbing or edema *Routine Skin Exam Skin: Present warm; Absent rash *Routine Neurological Exam Neurological: Present alert and oriented X3 Results Results Lab Results Last 24 Hours:: Laboratory Results - last 24 hr 01/24/25 22:20: Urine Color Yellow, Urine Appearance Clear, Urine pH 6.0, Ur Specific [place] 1.020, Urine Protein Negative, Urine Glucose (UA) Negative, Urine Ketones Trace, Urine Blood Negative, Urine Nitrate Negative, Urine Bilirubin Negative, Urine Urobilinogen 0.2, Ur Leukocyte Esterase Trace, Urine RBC 3-5, Urine WBC 5-10, Ur Squamous Epith Cells 3-5, Urine Bacteria 1+, Urine Mucus 1+ 01/24/25 22:28: WBC 8.4, RBC 5.35, Hgb 15.2, Hct 45.6, MCV 85.2, MCH 28.4, MCHC 33.3, RDW 13.3, Plt Count 327, MPV 9.5, Neut % (Auto) 60.2, Lymph % (Auto) 30.7, [place] % (Auto) 5.9, Eos % (Auto) 2.3, Baso % (Auto) 0.7, Neut # (Auto) 5.0, Lymph # (Auto) 2.6, [place] # (Auto) 0.5, Eos # (Auto) 0.2, Baso # (Auto) 0.1, Sodium 139, Potassium 3.8, Chloride 101, Carbon Dioxide 29, Anion Gap 12.8, BUN 11, Creatinine 0.90, Estimated Creat Clear 75, Estimated GFR 64, Est GFR ( Amer) 78, Glucose 98, Calcium 9.2, Total Bilirubin 0.7, AST 28, ALT 15, Alkaline Phosphatase 106, Total Protein 8.2 D, Albumin 4.5, Globulin 3.7 H, Albumin/Globulin Ratio 1.2, Lipase 104 Assessment and Plan *Assessment and plan (1) Complete small bowel obstruction: Status: Acute Category: Medical Code(s): K56.601 - Complete intestinal obstruction, unspecified as to cause (2) Irreducible Spigelian hernia: Status: Acute Category: Medical Code(s): K43.6 - Other and unspecified ventral hernia with obstruction, without gangrene Plan Patient has incarcerated potentially strangulated left lower quadrant hernia consistent with spigelian hernia resulting in small bowel obstruction. Plan will be for emergent surgical intervention. Plan for diagnostic laparoscopy to evaluate the bowel and nature of hernia likely with open hernia repair. Potential for bowel resection is appreciable and relayed to the patient. I explained to her the nature and details of the proposed procedure along with the associated risks and expected outcome. She understands and agrees to proceed.
--- NOTE | 2025-01-25 02:24 | P.PNANES_ITS ---
[facility] Disclaimer: The information contained in this section may have been updated after the patient was seen, as this information can be updated by other users. Social History Smoking Status: Never smoker second hand exposure: No alcohol intake: current alcohol intake frequency: a few times a month substance use type: denies use current occupational status: employed Travel in the last 8 weeks?: None housing: house caffeine: Yes [facility] Anesthesia Checklist Patient Identification Patient Identification: Arm Band and Verbal (Name & ) Structural Data Admitted From: Home Planned Operative Procedure/s: Diagnostic laparoscopy/laparotomy, possible SBO Consent for Planned Operative Procedure(s) Verified: Yes Verified Documents: Surgical Consent NPO Status Verified Time NPO: 00:00 Chart Verification Results Verified: CBC and BMP Additional verifications Patient : No Anesthesia Reactions: No Airway Assessment Mallampati Score:: Class II C-Spine Mobility Assessed: Yes TMJ Mobility Assessed: Yes Dentition: Good Dentition Neurological Assessment Level of Consciousness: Awake, Alert and Appropriate Hx Seizures: No Numbness or tingling in extremities: No Anesthesia Plan Anesthesia Risk discussed: Yes Anesthesia Plan: Verified ASA Class: II (Emergency) Anesthesia Type: General Preoperative Comments Pre-Operative Comments: Patient taking Zepbound (GLP-1), last dose Friday (01-19-25)
[2025-01-25] MEDS: LIDOCAINE 1% 20ML MDV 20 ML (02:26)
--- NOTE | 2025-01-25 03:37 | P.OP_ITS ---
Date of procedure: 01/25/25 Pre-op Diagnosis:: Small bowel obstruction, incarcerated spigelian hernia Post-op Diagnosis:: Same Procedure performed:: Diagnostic laparoscopy. open repair of incarcerated spigelian hernia. Surgeon:: Brady Galarza MD [employer] TECHNICIAN:: Blair Simeon Anesthesia: GETA Estimated blood loss (mL): 15 Operative findings:: She had a probable spigelian hernia containing loop of bowel which was incarcerated with early strangulation. It did not require resection. There was resultant small bowel obstruction. Hernia defect was below the external oblique muscle but somewhat superior to what would be a direct inguinal hernia. Therefore, likely spigelian. Defect size measured about 2 cm. Operative note:: Consent was obtained and patient was taken emergently to the operating room. She was given preoperative intravenous antibiotics. In the operating room she was placed in a supine position. General anesthesia was induced via endotracheal tube. Christensen catheter was placed. Abdomen was prepped and draped in the standard surgical fashion. Infraumbilical incision was made and while performing abdominal wall lift a Veress needle was inserted. CO2 pneumoperitoneum was achieved to 15 mmHg. 5 mm trocar was inserted at the umbilicus. Intraperitoneal contents were visualized. In the left lower quadrant there was a loop of small bowel. Afferent limb was somewhat dilated with the efferent limb decompressed consistent with a bowel obstruction. Additional 5 mm trocar was inserted above the umbilicus. [place] was inserted. Attempt was made with gentle traction to reduce the small bowel without success. Some abdominal wall pressure was applied over the hernia as well as gentle traction on the small bowel. This was unable to be reduced. Therefore incision was made over the hernia and dissection was carried down through subcutaneous tissues and Fredi's fascia. Hernia was palpated below the external oblique muscle but above what would be an inguinal hernia. External oblique muscle was opened along the length of its fibers. Hernia sac was dissected free from the surrounding subcutaneous tissues. At this time the bowel did reduce with some pressure. The hernia sac was opened. The extraneous peritoneum of the hernia sac was excised using electrocautery down to muscle. The muscle edges were cleaned free. Defect measured about 2 cm. Given the fact that this was essentially early strangulated hernia repair was performed without mesh. Transversalis muscle fascia was reapproximated with several interrupted #1 Prolene sutures. This appeared to result in good closure. At this time attention was turned once again to laparoscopy. CO2 pneumoperitoneum was reestablished. Laparoscope was inserted. The loop of small bowel which had been incarcerated was identified. It appeared viable with some patchy serosal bruising but no evidence of any necrosis. It did not require resection. Limited irrigation and suctioning was performed. Trocars were then removed the CO2 pneumoperitoneum was evacuated. Local anesthetic was infiltrated. External oblique muscle was closed at the site of the hernia using 2-0 Vicryl. Fredi's fascia was closed with 2-0 Vicryl. Skin incisions were closed with 4-0 Monocryl in a subcuticular fashion. Steri-Strips and dressings were applied. Condition: stable Disposition: PACU Complications:: None immediately apparent.
--- NOTE | 2025-01-25 03:48 | EXP.ANES.I ---
[facility] Anesthesia Record Part I Anesthesia Record I Intake, IV Amount: 700 Hydration: Adequate Estimated blood loss (mL): 0 Urine output (mL): 100 Blood Products used (#): none Blood Pressure: 122/66 SaO2: 96 Pulse Rate: 86 Airway Patency: Patent Respiratory Rate: 14 Temperature: 97.0 F Patient is:: Drowsy, Mask O2 (02 blowby) and Stable Stable to PACU at:: 03:44
--- NOTE | 2025-01-25 04:19 | PC.NURSE ---
Patient arrived to floor from surgery at 04:14.
[2025-01-25 06:12] LABS: Hematocrit 40.9 % (37.0-47.0); Immature Granulocytes % 0.6 %; Mean Corpuscular HGB Conc 33.3 g/dL (31.8-35.4); Mean Corpuscular Hemoglobin 28.3 pg (27.0-31.2); Mean Corpuscular Volume 85.0 fl (81-99); Nucleated Red Blood Cells % 0 %; Platelet Count 246 K/mm3 (142-424); Red Blood Count 4.81 M/mm3 (4.20-5.40); Red Cell Distribution Width-SD 41.9 fL; White Blood Count 8.7 K/mm3 (4.8-10.8)
[2025-01-25 06:18] LABS: Hemoglobin 13.7 g/dL (12.2-16.2)
[2025-01-25 06:19] LABS: Albumin Level 3.6 g/dl (3.5-5.0); Chloride 103 mmol/L (98-107); Sodium 138 mmol/L (136-145)
[2025-01-25 06:20] LABS: Potassium 4.4 mmoL/L (3.5-5.1)
[2025-01-25 06:22] LABS: Alanine Aminotransferase 13 U/L (12-78); Albumin/Globulin Ratio 1.2 (1.1-1.8); Anion Gap 11.4 mEq/L (5-15); Aspartate Amino Transferase 25 U/L (14-36); Blood Urea Nitrogen 9 mg/dl (7-17); Carbon Dioxide 28 mmol/L (22.0-30.0); Creatinine Clearance Estimated 84 mL/min (50-200); Creatinine,Serum 0.80 mg/dl (0.52-1.04); Estimated Glomerular Filt Rate 73 ml/min (>60); GFR (African American) 89 ML/MIN (>60); Globulin 2.9 g/dL (1.3-3.2); Total Protein,Serum 6.5 g/dl (6.3-8.2)
[2025-01-25 06:23] LABS: Alkaline Phosphatase 88 U/L (38-126); Bilirubin,Total 0.4 mg/dl (0.2-1.3); Calcium 8.4 mg/dl (8.4-10.2); Glucose 108 mg/dl (74-100); Magnesium 1.8 mg/dl (1.6-2.3)
--- NOTE | 2025-01-25 07:08 | EXP.ANES.II ---
[facility] Anesthesia Record Part II Anesthesia Record Part II Discharge Time: 04:14 Destination: Medical Surgical Department PACU nurse assessment reviewed?: Yes Patient Condition:: Good Anesthesia Complications:: None Swallowing reflex intact?: Yes Airway Patency: Patent Cyanosis?: No Blood Pressure: 122/70 SaO2: 96 Respiratory Rate: 16 Pulse Rate: 75 Temperature: 97.0 F Mental Status: Alert & Oriented Pain level:: 0 Nausea and/or vomitting:: None Intake, IV Amount: 0 Hydration: Adequate
--- NOTE | 2025-01-25 07:55 | HMH.PHAINT1 ---
Pharmacy Intervention Comments: home medication list verified using list from outpatient pharmacy
--- NOTE | 2025-01-25 08:01 | P.PN_ITS ---
Subjective Narrative: Patient feels quite well several hours postoperatively. Exam Data for Last 24 hours Vital signs and Labs for Last 24 Hours: Temp Pulse Resp BP Pulse Ox O2 Del Method O2 Flow Rate 97.9 F 78 16 107/66 L 95 Room Air 2 01/25/25 06:50 01/25/25 07:20 01/25/25 07:20 01/25/25 07:20 01/25/25 07:20 01/25/25 06:50 01/25/25 04:04 Laboratory Results - last 24 hr 01/24/25 22:20: Urine Color Yellow, Urine Appearance Clear, Urine pH 6.0, Ur Specific [place] 1.020, Urine Protein Negative, Urine Glucose (UA) Negative, Urine Ketones Trace, Urine Blood Negative, Urine Nitrate Negative, Urine Bilirubin Negative, Urine Urobilinogen 0.2, Ur Leukocyte Esterase Trace, Urine RBC 3-5, Urine WBC 5-10, Ur Squamous Epith Cells 3-5, Urine Bacteria 1+, Urine Mucus 1+ 01/24/25 22:28: WBC 8.4, RBC 5.35, Hgb 15.2, Hct 45.6, MCV 85.2, MCH 28.4, MCHC 33.3, RDW 13.3, Plt Count 327, MPV 9.5, Neut % (Auto) 60.2, Lymph % (Auto) 30.7, [place] % (Auto) 5.9, Eos % (Auto) 2.3, Baso % (Auto) 0.7, Neut # (Auto) 5.0, Lymph # (Auto) 2.6, [place] # (Auto) 0.5, Eos # (Auto) 0.2, Baso # (Auto) 0.1, Sodium 139, Potassium 3.8, Chloride 101, Carbon Dioxide 29, Anion Gap 12.8, BUN 11, Creatinine 0.90, Estimated Creat Clear 75, Estimated GFR 64, Est GFR ( Amer) 78, Glucose 98, Calcium 9.2, Total Bilirubin 0.7, AST 28, ALT 15, Alkaline Phosphatase 106, Total Protein 8.2 D, Albumin 4.5, Globulin 3.7 H, Albumin/Globulin Ratio 1.2, Lipase 104 01/25/25 05:40: WBC 8.7, RBC 4.81, Hgb 13.7, Hct 40.9, MCV 85.0, MCH 28.3, MCHC 33.3, RDW 13.4, Plt Count 246, MPV 9.6, Neut % (Auto) 90.3 H, Lymph % (Auto) 7.2 L, [place] % (Auto) 1.3 L, Eos % (Auto) 0.1, Baso % (Auto) 0.5, Neut # (Auto) 7.8, Lymph # (Auto) 0.6 L, [place] # (Auto) 0.1, Eos # (Auto) 0.0, Baso # (Auto) 0.0, Sodium 138, Potassium 4.4, Chloride 103, Carbon Dioxide 28, Anion Gap 11.4, BUN 9, Creatinine 0.80, Estimated Creat Clear 84, Estimated GFR 73, Est GFR ( Amer) 89, Glucose 108 H, Calcium 8.4, Magnesium 1.8, Total Bilirubin 0.4, AST 25, ALT 13, Alkaline Phosphatase 88, Total Protein 6.5, Albumin 3.6 D, Globulin 2.9, Albumin/Globulin Ratio 1.2 I & O for Last 24 hours: Intake & Output 01/22/25 01/23/25 01/24/25 01/25/25 11:59 11:59 11:59 11:59 Intake Total 1700 / 1700 Output Total 400 / 400 Balance 1300 / 1300 Weight 155 lb *Routine Abdominal Exam Abdominal: Present soft Progress Note: A&P Assessment and plan (1) Complete small bowel obstruction: Status: Acute Assessment and plan: Continue nasogastric tube for now due to resolving bowel obstruction secondary to incarcerated hernia. (2) Irreducible Spigelian hernia: Status: Acute
[2025-01-25] MEDS: LACTATED RINGERS 1000ML 1,000 ML 100 ML IV ×2 (10:18→21:41)
[2025-01-25] MEDS: PHENOL THROAT SPRAY 177 ML BOTTLE MM (10:19)
--- OUTSIDE RECORDS SUMMARY | 2025-01-25 11:51 | XMS_ITS | Patient Health Record ---
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 A CAD system (Puuilo) was utilized for data analysis. COMPARISON: Prior breast MRI dated 12/21/2021. FINDINGS: Contrast is noted in the heart and great vessels. Minimal background parenchymal enhancement is noted bilaterally. Evidence of bilateral prophylactic mastectomies with silicone implant reconstruction is noted. The retropectoral silicone implants bilaterally are intact without evidence of implant rupture. No suspicious masslike nor [id number]-sssp-orzs enhancement is noted bilaterally. No suspicious axillary [...] Problem Status W/U Status Risk Notes Problem Personal history of primary malignant neoplasm of breast (114192909) Personal history of breast cancer (Z85.3) Active confirmed Problem Body mass index 30.00 to 34.99 ([id number] ) BMI 31.0-31.9,adult (Z68.31) Active confirmed Problem Silicone breast implant in situ (Z98.82) Active confirmed Problem Gynecological examination normal ([id number] ) Cervical smear, as part of routine gynecological examination (Z01.419) 08/20/19 17 Active confirmed Annual without abnormal findings Plan Of Treatment Next Appt Details Provider Name:Ирина Marcos , 02/14/2025 02:15:00 PM, [address] [facility] [address], [place], [address], Insurance Providers Payer Name Payer Address Payer Phone Subscriber Number Group Number Insured Name Patient Relationship to Insured Coverage Start Date Coverage End Date Maurice PPO [address] [place] [address] [id number] Eufemia Kang Self - patient is the insured 2 Medical (General) History Medical History History ICD Code Hypothyroid Positive BRCA s/p mastectomy, hysterecto my and BSO Stroke Liver disease Surgical History Surgery Date(Month/Year) Bilateral mastectomy 02/2008 Hysterectomy 06/2007 T&A 1972 Cholecystectomy Hospitalization History Reason Date(Month/Year) surgery
--- OUTSIDE RECORDS SUMMARY | 2025-01-25 11:51 | XMS_ITS | Continuity of Care Document ---
Author Organization [facility] [place] Address [address] [place] [address] Assessment No assessment recorded. Plan of Treatment Reminders Order Date Submit Date Provider Last Modified By Organization Details Last Modified Time Details Appointments None recorded. Lab None recorded. Referral None recorded. Procedures None recorded. Surgeries None recorded. Imaging None recorded. Medication Orders prednisone 10 mg tablet [address] [facility] [address] [facility], [address], [address], 11:14:53 triamcinolo ne acetonide 0.1 % topical ointment [address] [facility], [address], [address], 11:14:53 Patient TargetsNo targets recorded. Patient InstructionsNo instructions recorded. Reason for Referral None Reported. Medical Equipment None Reported. Allergies Allergen ID Allergen Name Allergen Category Reaction Reaction Severity Criticality Documentation Date Start Date Code Code System Note Provider Name and Address Organization Details Recorded Time [id number] Product containin g penicilli n (product) medicatio n Not available Not available Not available 03/01/20162012 78371 8001 SNOMED Comme nt: Creat ed By: Jesse tavarezCre ated Date: 2012 11:14 :24 AM; Not Available [facility] 06:03:56 Medications Name Sig Start Date Stop Date Status Note LastModified by Organization Details LastModified Time prednisone 10 mg tablet Take 4 tablets po x4 days, 3 tablets po x4 days, 2 tablets po x4 days, 1 tablet po x4 days 2024 active Not Available Not Available Not Avai lable Celebrex 200 mg capsule Daily active Duration: 30 days;Freq uency: daily;Med ication Descripti on: celecoxib ; Dosage:1; Route:ora l; refills:0 ; Quantity: 30 capsule Not Available Not Available Not Available levothyroxi ne 88 mcg tablet Daily active Frequency : daily;Med ication Descripti on: levothyro xine; Dosage:1; Route:ora l; refills:0 Not Available Not Available Not Available triamcinolo ne acetonide 0.1 % topical ointment Apply to the AA BID x2 weeks then stop. Not for face, armpits, or groin. 2024 active Not Available Not Available Not Avai lable aspirin 81 mg tablet Daily active Duration: 30 days;Freq uency: daily;Med ication Descripti on: aspirin; Dosage:1; Route:ora l; refills:0 ; Quantity: 30 tablet Not Available Not Available Not Available Wellbutrin XL 150 mg 24 hr tablet, extended release Daily active Duration: 30 days;Freq uency: daily;Med ication Descripti on: bupropion ; Dosage:1; Route:ora l; refills:0 ; Quantity: 30 tablet, extended release Not Available Not Available Not Available Zepbound active Not Available Not Avai lable Not Available Vitals None Recorded Social History Question Answer Notes LastModified by Vidly Details LastModified Time Tobacco Smoking Status [facility]25 09:20:38 What Is Your Level Of Caffeine Consumption? Moderate Information not available 01/11/2025 What Was The Date Of Your Most Recent Tobacco Screening? 01/11/2025 Information not available 01/11/2025 Has Tobacco Cessation Counseling Been Provided? No Information not available 01/11/2025 Sex: Unknown Functional Status Question Answer Note LastModified by Vidly Details LastModified Time Do you use any illicit or recreational drugs? No Information not available 01/11/2025 Do you or have you ever used any other forms of tobacco or nicotine? No Information not available 01/11/2025 What is your level of alcohol consumption? None Information not available 01/11/2025 Mental Status None recorded. Family History Nothing Reported. Medical History No medical history recorded. Gynecological HistoryNo gynecological history recorded. Obstetrics History GPAL:G 0 P 0 0 0 0 Past Encounters Encounter ID Performer Location Encounter Start Date Encounter Closed Date Diagnosis/Indication Diagnosis SNOMED-CT Code Diagnosis ICD10 Code Diagnosis IMO Codes Diagnosis Note [id number] MARTIN RAIN PA-C [place] [address] [place] [address] 01/11/2025 09:11:31 01/11/2025 10:34:03 Multiple benign melanocytic nevi [id number] D22.5 L81.4 D18.01 L82.1 Benign appearing nevi noted on exam. Reassured. Monitor for changes and call us for appt if changing or worrisome. Recommende d daily SPF 30 (or higher) broad-spec trum sunscreen usage with re-applica tion every 2 hours, as well as sun protection measures, including wide-brimm ed hats, wearing of protective clothing, and avoidance of sun during peak hours of the day 10 am - 4 pm. Avoid tanning beds as these can increase chances of all 3 main types of skin cancers. Allergic c ontact dermatitis caused by plant material [id number] L23.7 [id number] Pt notes exposure to poison akshat. 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 Recurrent rounds of oral steroids can lead to increased risk of fracture. Patient denies history of diabetes. Health Concerns Section Related Observation LastModified by Organization Detai ls LastModified Time None Recorded Concern Status LastModified by Organization Details LastModified Time None Recorded Payers Encounter Date Sequence Insurance Name Policy Number Policy Michel Covered Member ID Michel Member ID Guarantor Name 01/11/2025 1 [employer] [id number] Alberto Correia [id number] Eufemia Correia Notes Date Note Type Note Provider Name and Address Organization Details Recorded Time 01/11/2025 text/html Here for a full body skin examination - last skin check: 10/2022 - no history of skin cancer - spots of concern today: Melyssa RAIN PA-C [address] [place], [address], [facility] 01/11/2025 10:20:17 OBGyn Episode No OBEpisode recorded.
--- OUTSIDE RECORDS SUMMARY | 2025-01-25 11:51 | XMS_ITS | Data Portability ---
Author Organization [facility] MIKE Barrera [facility] CLOS[facility] Address [address] [place] [address] Assessment No assessment recorded. Plan of Treatment Reminders Order Date Submit Date Provider Last Modified By Organization Details Last Modified Time Details Appointments None recorded. Lab None recorded. Referral None recorded. Procedures None recorded. Surgeries None recorded. Imaging None recorded. Medication Orders prednisone 10 mg tablet [address] [facility], [address], [address], 5 11:14:53 triamcinolo ne acetonide 0.1 % topical ointment [address] [facility] [address] [facility], [address], [address], 11:14:53 Patient TargetsNo targets recorded. Patient InstructionsNo instructions recorded. Reason for Referral None Reported. Medical Equipment None Reported. Allergies Allergen ID Allergen Name Allergen Category Reaction Reaction Severity Criticality Documentation Date Start Date Code Code System Note Provider Name and Address Organization Details Recorded Time 372469 Product containin g penicilli n (product) medicatio n Not available Not available Not available 03/01/20162012 57671 8001 SNOMED Comme nt: Creat ed By: Jesse tavarezCre ated Date: 2012 11:14 :24 AM; Not Available [facility] 06:03:56 Medications Name Sig Start Date [...] Social History Question Answer Notes LastModified by NormOxys Details LastModified Time Tobacco Smoking Status Never Smoker Mayte Amaro [facility] 01/11/2025 09:20:38 What Is Your Level Of Caffeine Consumption? Moderate Information not available 01/11/2025 What Was The Date Of Your Most Recent Tobacco Screening? 01/11/2025 Information not available 01/11/2025 Has Tobacco Cessation Counseling Been Provided? No Information not available 01/11/2025 Sex: Unknown Functional Status Question Answer Note LastModified by NormOxys Details LastModified Time Do you use any [...] ICD10 Code Diagnosis IMO Codes Diagnosis Note [id number] MARTIN RAIN PA-C [address] [id number] 01/11/2025 09:11:31 01/11/2025 10:34:03 Multiple benign melanocytic nevi 137599213 D22.5 L81.4 D18.01 L82.1 Benign appearing nevi [...] c ontact dermatitis caused by plant material [id number] 9042301 L23.7 119409 Pt notes exposure to poison akshat. She [...] by Organization Details LastModified Time None Recorded Advance Directives Directive None Recorded Payers Insurance Date Sequence Insurance Name Policy Number Policy Michel Covered Member ID Michel Member ID Guarantor Name 01/08/2025 1 [employer] [id number] R José Manuel Correia [id number] Eufemia Johana Masood Notes Date Note Type Note Provider Name and Address Organization Details Recorded Time 01/11/2025 text/html Here for a full body skin examination - last skin check: 10/2022 - no history of skin cancer - spots of concern today: DAWSON FontanaC [address] [place], [address], [facility] 01/11/2025 10:20:17 OBGyn Episode No OBEpisode recorded.
--- OUTSIDE RECORDS SUMMARY | 2025-01-25 11:51 | XMS_ITS | Data Portability ---
Author Organization [facility], HOME[facility]INTERMEDIATE/IND Address [address] [place] [address] Assessment No assessment recorded. Plan of Treatment Reminders Order Date Submit Date Provider Last Modified By Organization Details Last Modified Time Details Appointments None recorded. Lab None recorded. Referral None recorded. Procedures None recorded. Surgeries None recorded. Imaging None recorded. Medication Orders Zepbound 10 mg/0.5 mL subcutaneou s pen injector 2024 025 [facility], [address] [place], [address], 5 11:25:40 Zepbound 10 mg/0.5 mL subcutaneou s pen injector 2024 025 [facility], [address] [place] [address], [address], 5 10:06:05 Zepbound 10 mg/0.5 mL subcutaneou s pen injector 2024 025 [facility], [address] [place], [address], 5 13:08:07 Zepbound 10 mg/0.5 mL subcutaneou s pen injector 2024 025 [facility], [address] [place] [address], [address], 5 11:44:07 Patient TargetsNo targets recorded. Patient InstructionsNo instructions recorded. Reason for Referral None Reported. Problems Name Problem SNOMED Code Status Onset Date Resolution Date Notes Provider Name and Address Organization Details Recorded Time Prediabetes 381058160 Active 2023 Crow Segura MD [address] [place], [address], [facility] 4 09:42:02 Obstructive sleep apnea syndrome 18128916 Active 2024 CIRO SOLIS APRN [address] [place], [address], [facility] 5 13:42:23 Problem Notes None recorded. Procedures Surgical History Date Name Laterality Status Provider Name and Address Organization Details Recorded Time 02/17/20 08 Bilateral Mastectomy completed [facility] 08/15/2023 10:29:17 04/07/19 07 Hysterectomy completed [facility] 08/15/2023 10:29:17 04/07/19 07 Oophorectomy completed [facility] 08/15/2023 10:29:17 Cholecystectomy completed [facility] 08/15/2023 10:29:17 Tonsillectomy completed [facility] 08/15/2023 10:29:17 Adenoid Surgery completed [facility] 08/15/2023 10:29:17 Imaging Results None recorded. Procedure Notes None recorded. Medical Equipment None Reported. Allergies Allergen ID Allergen Name Allergen Category Reaction Reaction Severity Criticality Documentation Date Start Date Code Code System Note Provider Name and Address Organization Details Recorded Time 1940 Product containin g penicilli n (product) medicatio n hives moderate Not available 08/15/2023 20391 [id number] SNOMED [facility] 10:29:16 Medications Name Sig Start Date Stop Date Status Note LastModified by Organization Details LastModified Time TIRZEPATIDE - LCP 40 u weekly 2023 active Not Available Not Available Not Avai lable TIRZEPATIDE COMPOUNDED 30 u subq l arm [facility]switzer 2023 active Not Available Not Available Not Avai lable TIRZEPATIDE COMPOUNDED 40 u weekly 2023 active Not Available Not Available Not Avai lable TIRZEPATIDE COMPOUNDED 30 u subq R arm by [facility] 8 2023 active Not Available Not Available Not Avai lable TIRZEPATIDE/ Methylcobala min 50u weekly 2024 active Not Available Not Available Not Avai lable TIRZEPATIDE COMPOUNDED 20 u weekly 2023 active Not Available Not Available Not Avai lable TIRZEPATIDE COMPOUNDED 30 u weekly 2023 active Not Available Not Available Not Avai lable TIRZEPATIDE COMPOUNDED 40 u weekly 2023 active Not Available Not Available Not Avai lable TIRZEPATIDE COMPOUNDED 30 u subq l arm [facility] 2023 active Not Available Not Available Not Avai lable TIRZEPATIDE COMPOUNDED 20u subq [facility]23 active Not Available Not Available Not Avai lable TIRZEPATIDE COMPOUNDED 20u subq Rarm by 17 2023 active Not Available Not Available Not Avai lable TIRZEPATIDE COMPOUNDED 40 u weekly 2023 active Not Available Not Available Not Avai lable TIRZEPATIDE COMPOUNDED 20 units subq upper r arm [facility] 2023 active Not Available Not Available Not Avai lable celecoxib 200 mg capsule TAKE 1 CAPSULE BY MOUTH ONCE DAILY active Not Available Not Available No t Available prednisone 10 mg tablet TAKE 4 TABLETS BY MOUTH ONCE DAILY FOR 4 DAYS, 3 ONCE DAILY FOR 4 DAYS, 2 ONCE DAILY FOR 4 DAYS, THEN 1 ONCE DAILY FOR 4 DAYS active Not Available Not Available No t Available prednisone 20 mg tablet active Not Available Not Available Not Available ciprofloxaci n 500 mg tablet active Not Available Not Available Not Available levothyroxin e 100 mcg tablet TAKE 1 TABLET BY MOUTH ONCE DAILY active Not Available Not Available No t Available levothyroxin e 88 mcg tablet TAKE 1 TABLET BY MOUTH IN THE MORNING 30 MIN BEFORE EATING OR TAKING OTHER MEDICATIONS TO GIVE TIME FOR ABSORPTION active Not Available Not Available N ot Available triamcinolon e acetonide 0.1 % topical ointment APPLY OINTMENT TOPICALLY TO AFFECTED AREA TWICE DAILY FOR 14 DAYS THEN STOP (DO NOT APPLY TO FACE,ARMPIT S OR GROIN) active Not Available Not Available Not Available omeprazole 20 mg capsule,sajan yed release TAKE 1 CAPSULE BY MOUTH ONCE DAILY active Not Available Not Available No t Available Prilosec OTC 20 mg tablet,delay ed release 20 mg every day by oral route. active Not Available Not Available No t Available bupropion HCl XL 150 mg 24 hr tablet, extended release TAKE 1 TABLET BY MOUTH IN THE MORNING active Not Available Not Available Not Available ORTHOVISC 30 mg/2 mL intra-articu lar syringe active Not Available Not Available Not Available Zepbound 10 mg/0.5 mL subcutaneous pen injector INJECT 1 SYRINGE SUBCUTANEOU SLY ONCE A WEEK active Not Available Not Available No t Available Zepbound 5 mg/0.5 mL subcutaneous pen injector Inject 5 mg every week by subcutaneou s route as directed for 30 days. 2024 active Not Available Not Available Not Avai lable Zepbound 7.5 mg/0.5 mL subcutaneous pen injector Inject 0.5 mL every week by subcutaneou s route as directed for 28 days. 2024 active Not Available Not Available Not Avai lable Vitals Date Recorded Body height Body mass index (BMI) Body weight Provider Name and Address Organization Details Last Updated DateTime 12/29/2024 166.37 cm 25.4 kg/m2 38199.82 g CIRO SOLIS, LITHODUPLICATOR OPERATOR [address] [place] [address], [address], [place] [facility] 12/29/2024 11:24:42 Social History Question Answer Notes LastModified by Organizat ion Details LastModified Time Are You Blind Or Do You Have Difficulty Seeing? No [email or web address] Information not available 08/15/2023 Are You Deaf Or Do You Have Serious Difficulty Hearing? No [email or web address] Information not available 08/15/2023 Are There Any Guns Present In Your Home? Yes [email or web address] Information not available 08/15/2023 Are There Any Occupational Health Risks Where You Work? No [email or web address] Information not available 08/15/2023 Are You Passively Exposed To Smoke? No [email or web address] Information no t available 08/15/2023 Are There Any Smokers In Your House? No [email or web address] Information not available 08/15/2023 Are You Currently In School? No [email or web address] Information not available 08/15/2023 Sex: Unknown Functional Status Question Answer Note LastModified by Organization D etails LastModified Time Are you currently employed? No [email or web address] Information not available 08/15/2023 Are you able to care for yourself independently? Yes [email or web address] Information not available 08/15/2023 Mental Status Question Answer Note LastModified by Organization D etails LastModified Time Do you have difficulty concentrating, remembering or making decisions? No [email or web address] Information no t available 08/15/2023 Family History Relationship Description Onset Age of this Age Resolved Age Notes LastModified by Organization Details LastModified Time Mother Malignant neoplasm of ovary 60 [email or web address] Not available 10:29:16 Mother BRCA1 mutation carrier detection test 57 60 [email or web address] Not available 10:29:16 Maternal Grandfather Harmful pattern of use of alcohol 22 65 [email or web address] Not available 10:29:16 Father Diabetes mellitus 55 [email or web address] Not available 10:29:16 Medical History Condition Response Muscle, Joint, or Bone Problems Y Breast Problem Y Arthritis Y Infertility Y Liver Disease Y Varicosities Y Thyroid Problems Y Lung Disease Y Hypothyroidism Y Chicken Pox Y Gynecological History Statement/Question Response Abnormal Pap N Sterilization HPV Vaccine N Age at Menarche 9 Age at First Child 30 N Obstetrics History GPAL:G 0 P 0 0 0 0 Immunizations Vaccine Type Date Status Note Provider Nam e and Address Organization Details Recorded Time MMR 4 completed [facility] 08/15/2023 10:29:18 SARS-COV-2 (COVID-19) vaccine, UNSPECIFIED 1 completed [facility] 08/15/2023 10:29:18 Tdap 2 completed [facility] 08/15/2023 10:29:18 varicella 0 completed [facility] 08/15/2023 10:29:18 Hep B, unspecified formulation 1 completed [facility] 08/15/2023 10:29:18 zoster live 2 completed [facility] 08/15/2023 10:29:18 Influenza, split virus, trivalent, preservative 3 completed [facility] 08/15/2023 10:29:18 DTaP 0 completed [facility] 08/15/2023 10:29:18 zoster recombinant 1 completed [facility] 09/24/2023 10:36:49 zoster recombinant 9 completed [facility] 09/24/2023 10:36:49 yellow fever live 2 completed [facility] 09/24/2023 10:36:49 Past Encounters Encounter ID Performer Location Encounter Start Date Encounter Closed Date Diagnosis/Indication Diagnosis SNOMED-CT Code Diagnosis ICD10 Code Diagnosis IMO Codes Diagnosis Note [id number] Crow Segura MD Main Office [address] [place] [address] 08/15/2023 10:23:24 08/15/2023 11:24:02 Obesity 070568294 E66.9 Advised patient that working to achieve a healthy body weight is very important for long wall shear operator health and prevention of diseaseGiv en goal of 30min of exercise 5x/weekPat ient denies any family history of MEN Syndrome. Denies any personal history of medullary thyroid cancer or other endocrine cancers including pancreatic or adrenal or other cancers.Di scussed calorie restrictio n and given daily calorie restrictio n based on current age, weight and activity level.was on zepbound 7.5mg weekly in the pastStart Tirzepatid e 20 u weeklyCalo safia Goal: 7976-9491 hayder/dayDis cussed other weight loss interventi ons including weight loss medicine and/or weight loss surgery.Antonio burns counselled and understand s medication used is a compounded form of GLP-1 sourced from a reputable compoundin g pharmacy. The brand name GLP-1 is not available and not a reasonable option at this time due to cost. Patient understand s the potential risks involved in using compounded medication s. Patient agrees to follow up for close monitoring for response and adjustment s of treatment plan. [id number] Crow Segura MD Main Office [address] [place] [address] 09/24/2023 10:30:38 09/26/2023 11:28:23 Obesity 978252999 E66.9 Advised patient that working to achieve a healthy body weight is very important for long wall shear operator health and prevention of diseaseGiv en goal of 30min of exercise 5x/weekPat ient denies any family history of MEN Syndrome. Denies any personal history of medullary thyroid cancer or other endocrine cancers including pancreatic or adrenal or other cancers.Di scussed calorie restrictio n and given daily calorie restrictio n based on current age, weight and activity level.was on zepbound 7.5mg weekly in the pastPatien t just returned from [employer] trip for [place]. She is [facility] on October 15thIncrea se Tirzepatid e 30u weeklyCalo safia Goal: 6826-4980 hayder/dayDis cussed other weight loss interventi ons including weight loss medicine and/or weight loss surgery.Antonio burns counselled and understand s medication used is a compounded form of GLP-1 sourced from a reputable [facility] pharmacy. The brand name GLP-1 is not available and not a reasonable option at this time due to cost. Patient understand s the potential risks involved in using compounded medication s. Patient agrees to follow up for close monitoring for response and adjustment s of treatment plan. [id number] CIRO SOLIS APRN Main Office [address] [place] [address] 10/28/2023 13:27:22 10/28/2023 14:07:33 Obesity 312250678 E66.9 Advised patient that working to achieve a healthy body weight is very important for long wall shear operator health and prevention of diseaseGiv en goal of 30min of exercise 5x/weekPat ient denies any family history of MEN Syndrome. Denies any personal history of medullary thyroid cancer or other endocrine cancers including pancreatic or adrenal or other cancers.Di scussed calorie restrictio n and given daily calorie restrictio n based on current age, weight and activity level.was on zepbound 7.5mg weekly in the pastPatien t just returned from [place] trip.Takin g tirzepatid e 30u once weekly. Tolerating well. Denies any negative side effects.Re ports she is able to tell appetite has lessened but i shaving difficulty staying within calorie goa.Increa se Tirzepatid e 40u weeklyCalo safia Goal: 5328-6320 hayder/dayDis cussed other weight loss interventi ons including weight loss medicine and/or weight loss surgery.Antonio burns counselled and understand s medication used is a compounded form of GLP-1 [facility]. The brand name GLP-1 is not available and not a reasonable option at this time due to cost. Patient understand s the potential risks involved in using compounded medication s. Patient agrees to follow up for close monitoring for response and adjustment s of treatment plan. Attestatio n: I, Crow Segura MD, discussed case with Ciro Solis APRN. I agree with assessment and plan as outlined above. [id number] Crow Segura MD Main Office [address] [place] [address] 01/21/2024 09:14:28 01/21/2024 10:06:49 Obesity 655950578 E66.9 Advised patient that working to achieve a healthy body weight is very important for long wall shear operator health and prevention of diseaseGiv en goal of 30min of exercise 5x/weekPat ient denies any family history of MEN Syndrome. Denies any personal history of medullary thyroid cancer or other endocrine cancers including pancreatic or adrenal or other cancers.Di scussed calorie restrictio n and given daily calorie restrictio n based on current age, weight and activity level.was on zepbound 7.5mg weekly in the pastShe has strong family hx of diabetes with Dad and brother.He r Last labs showed A1c from 2021 was 5.7 (prediabet es)Current BMI 29 from 30.5Patien t just returned from [employer] trip.Takin g tirzepatid e 30u once weekly. Tolerating well. Denies any negative side effects.Re ports she is able to tell appetite has lessened but i shaving difficulty staying within calorie goal.Stop compounded Tirzepatid e 40u weeklyStar t Zepbound 5mg weekly (patient is [employer] employee spouse and thinks that insurance shows this is a covered medication )Calorie Goal: 7679-7403 hayder/dayDis cussed other weight loss interventi ons including weight loss medicine and/or weight loss surgery.Antonio burns counselled and understand s medication used is a compounded form of GLP-1 sourced from a reputable [facility] pharmacy. The brand name GLP-1 is not available and not a reasonable option at this time due to cost. Patient understand s the potential risks involved in using compounded medication s. Patient agrees to follow up for close monitoring for response and adjustment s of treatment plan. [id number] CIRO SOLIS APRN Main Office [address] [place] [address] 02/24/2024 11:17:42 02/24/2024 11:39:55 Obesity 496936872 E66.9 Advised patient that working to achieve a healthy body weight is very important for long wall shear operator health and prevention of diseaseGiv en goal of 30min of exercise 5x/weekPat ient denies any family history of MEN Syndrome. Denies any personal history of medullary thyroid cancer or other endocrine cancers including pancreatic or adrenal or other cancers.Di scussed calorie restrictio n and given daily calorie restrictio n based on current age, weight and activity level.Taki ng zepbound 5mg once weekly. Tolerating well. Denies any negative side effects.-2 lb since previous visit.Laverne ent would like to continue current dose.Guadalupe nue Zepbound 5mg weekly.Dis cussed medication use and potential side effect including n/v, constipati on, diarrhea, acid reflux, and rarely pancreatit is.Calorie Goal: 5172-9182 hayder/dayDis cussed other weight loss interventi ons including weight loss medicine and/or weight loss surgery.Antonio burns counselled and understand s medication used is a compounded form of GLP-1 sourced from a reputable [facility] pharmacy. The brand name GLP-1 is not available and not a reasonable option at this time due to cost. Patient understand s the potential risks involved in using compounded medication s. Patient agrees to follow up for close monitoring for response and adjustment s of treatment plan. Attestatio n: I, Crow Segura MD, discussed case with Ciro Solis APRN. I agree with assessment and plan as outlined above. [id number] Crow Segura MD Main Office [address] [place] [address] 03/24/2024 11:18:42 03/24/2024 12:10:40 Obesity 191053184 E66.9 Advised patient that working to achieve a healthy body weight is very important for long wall shear operator health and prevention of diseaseGiv en goal of 30min of exercise 5x/weekPat ient denies any family history of MEN Syndrome. Denies any personal history of medullary thyroid cancer or other endocrine cancers including pancreatic or adrenal or other cancers.Di scussed calorie restrictio n and given daily calorie restrictio n based on current age, weight and activity level.Gisela ng zepbound 5mg once weekly. Tolerating well. Denies any negative side effects.-2 lb since previous visit.Laverne ent would like to continue current dose.Yesenia nt went on all inclusive cruise. Going to [facility] in less than 10 days.Doing well. no s/eContinu e Zepbound 5mg weekly.Dis cussed medication use and potential side effect including n/v, constipati on, diarrhea, acid reflux, and rarely pancreatit is.Calorie Goal: 5260-8799 hayder/dayDis cussed other weight loss interventi ons including weight loss medicine and/or weight loss surgery.Antonio burns counselled and understand s medication used is a compounded form of GLP-1 sourced [facility] a [facility]. The brand name GLP-1 is not available and not a reasonable option at this time due to cost. Patient understand s the potential risks involved in using compounded medication s. Patient agrees to follow up for close monitoring for response and adjustment s of treatment plan. [id number] Crow Segura MD Main Office [address] [place] [address] 04/21/2024 11:24:30 04/21/2024 12:53:00 Obesity 471150281 E66.9 Advised patient that working to achieve a healthy body weight is very important for fdc health and prevention of diseaseGiv en goal of 30min of exercise 5x/weekPat ient denies any family history of MEN Syndrome. Denies any personal history of medullary thyroid cancer or other endocrine cancers including pancreatic or adrenal or other cancers.Di scussed calorie restrictio n and given daily calorie restrictio n based on current age, weight and activity level.Taki ng zepbound 5mg once weekly. Tolerating well. Denies any negative side effects.-2 lb since previous visit.Laverne ent would like to continue current dose.Patie nt went on all inclusive cruise. Going to [facility] in less than 10 days.Doing well. no s/eContinu e Zepbound 5mg weekly.Dis cussed medication use and potential side effect including n/v, constipati on, diarrhea, acid reflux, and rarely pancreatit is.Calorie Goal: 4750-2165 hayder/dayDis cussed other weight loss interventi ons including weight loss medicine and/or weight loss surgery.Antonio burns counselled and understand s medication used is a compounded form of GLP-1 sourced from a reputable [facility] pharmacy. The brand name GLP-1 is not available and not a reasonable option at this time due to cost. Patient understand s the potential risks involved in using compounded medication s. Patient agrees to follow up for close monitoring for response and adjustment s of treatment plan. [id number] CIRO SOLIS APRN Main Office [address] [place] [address] 05/25/2024 13:01:11 05/25/2024 13:10:19 Obesity 752175287 E66.9 Advised patient that working to achieve a healthy body weight is very important for long wall shear operator health and prevention of diseaseGiv en goal of 30min of exercise 5x/weekPat ient denies any family history of MEN Syndrome. Denies any personal history of medullary thyroid cancer or other endocrine cancers including pancreatic or adrenal or other cancers.Di scussed calorie restrictio n and given daily calorie restrictio n based on current age, weight and activity level.Taki ng zepbound 5mg once weekly. Tolerating well. Denies any negative side effects.-5 lb since previous visit.Laverne ent would like to continue current dose.Doing well. no s/eContinu e Zepbound 5mg weekly.Dis cussed medication use and potential side effect including n/v, constipati on, diarrhea, acid reflux, and rarely pancreatit is.Calorie Goal: 9279-1557 hayder/dayDis cussed other weight loss interventi ons including weight loss medicine and/or weight loss surgery.Antonio burns counselled and understand s medication used is a compounded form of GLP-1 sourced from a reputable [facility] pharmacy. The brand name GLP-1 is not available and not a reasonable option at this time due to cost. Patient understand s the potential risks involved in using compounded medication s. Patient agrees to follow up for close monitoring for response and adjustment s of treatment plan. [id number] CIRO SOLIS APRN Main Office [address] [place] [address] 06/22/2024 08:12:54 06/22/2024 08:37:06 Obesity 050685513 E66.9 Advised patient that working to achieve a healthy body weight is very important for fdc health and prevention of diseaseGiv en goal of 30min of exercise 5x/weekPat ient denies any family history of MEN Syndrome. Denies any personal history of medullary thyroid cancer or other endocrine cancers including pancreatic or adrenal or other cancers.Di scussed calorie restrictio n and given daily calorie restrictio n based on current age, weight and activity level.Taki ng zepbound 5mg once weekly. Tolerating well. Denies any negative side effects.+4 lb since previous visit.Laverne ent would like to continue current dose.Doing well. no s/eContinu e Zepbound 5mg weekly.Dis cussed medication use and potential side effect including n/v, constipati on, diarrhea, acid reflux, and rarely pancreatit is.Calorie Goal: 1389-8262 hayder/dayDis cussed other weight loss interventi ons including weight loss medicine and/or weight loss surgery.Antonio burns counselled and understand s medication used is a compounded form of GLP-1 sourced from a reputable [facility] pharmacy. The brand name GLP-1 is not available and not a reasonable option at this time due to cost. Patient understand s the potential risks involved in using compounded medication s. Patient agrees to follow up for close monitoring for response and adjustment s of treatment plan. CIRO SOLIS APRN Main Office [address] [place] [address] 07/19/2024 08:24:41 07/19/2024 11:04:50 Obesity 200242961 E66.9 Advised patient that working to achieve a healthy body weight is very important for fdc health and prevention of diseaseGiv en goal of 30min of exercise 5x/weekPat ient denies any family history of MEN Syndrome. Denies any personal history of medullary thyroid cancer or other endocrine cancers including pancreatic or adrenal or other cancers.Di scussed calorie restrictio n and given daily calorie restrictio n based on current age, weight and activity level.Taki ng zepbound 5mg once weekly. Tolerating well. Denies any negative side effects.+4 lb since previous visit.Laverne ent would like to increase dose.Doing well. no s/eIncreas e Zepbound 7.5mg weekly.Dis cussed medication use and potential side effect including n/v, constipati on, diarrhea, acid reflux, and rarely pancreatit is.Calorie Goal: 9128-7283 hayder/dayDis cussed other weight loss interventi ons including weight loss medicine and/or weight loss surgery.Antonio burns counselled and understand s medication used is a compounded form of GLP-1 sourced from a reputable [facility] pharmacy. The brand name GLP-1 is not available and not a reasonable option at this time due to cost. Patient understand s the potential risks involved in using compounded medication s. Patient agrees to follow up for close monitoring for response and adjustment s of treatment plan. [id number] CIRO SOLIS APRN Main Office [address] [place] [address] 08/16/2024 09:53:57 08/16/2024 10:46:51 Obesity 593816498 E66.9 Advised patient that working to achieve a healthy body weight is very important for fdc health and prevention of diseaseGiv en goal of 30min of exercise 5x/weekPat ient denies any family history of MEN Syndrome. Denies any personal history of medullary thyroid cancer or other endocrine cancers including pancreatic or adrenal or other cancers.Di scussed calorie restrictio n and given daily calorie restrictio n based on current age, weight and activity level.Taki ng zepbound 7.5mg once weekly. Tolerating well. Denies any negative side effects.Cu rrent weight 162lbPatie nt would like to continue current dose.Doing well. no s/eContinu e Zepbound 7.5mg weekly.Dis cussed medication use and potential side effect including n/v, constipati on, diarrhea, acid reflux, and rarely pancreatit is.Calorie Goal: 3592-3898 hayder/dayDis cussed other weight loss interventi ons including weight loss medicine and/or weight loss surgery.Antonio burns counselled and understand s medication used is a compounded form of GLP-1 sourced from a reputable [facility] pharmacy. The brand name GLP-1 is not available and not a reasonable option at this time due to cost. Patient understand s the potential risks involved in using compounded medication s. Patient agrees to follow up for close monitoring for response and adjustment s of treatment plan. 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 Denies any personal history of medullary thyroid cancer or other endocrine cancers including pancreatic or adrenal or other cancers.Di scussed calorie restrictio n and given daily calorie restrictio n based on current age, weight and activity level.Taki ng zepbound 7.5mg once weekly. Tolerating well. Denies any negative side effects.Hx prediabete s and ARTURO.Curren t weight 162lbConti nue Zepbound 7.5mg weekly. If insurance will not approve patient will switch to tirzepatid e.STOP zepbound.S TART tirzepatid e 50u weekly.Dis cussed medication use and potential side effect including n/v, constipati on, diarrhea, acid reflux, and rarely pancreatit is.Calorie Goal: 5671-3285 hayder/dayDis cussed other weight loss interventi ons including weight loss medicine and/or weight loss surgery.Antonio burns counselled and understand s medication used is a compounded form of GLP-1 sourced from a reputable [facility] pharmacy. The brand name GLP-1 is not available and not a reasonable option at this time due to cost. Patient understand s the potential risks involved in using compounded medication s. Patient agrees to follow up for close monitoring for response and adjustment s of treatment plan. 71047 CIRO SOLIS APRN Main Office [address] [facility] [place] [address] 09/13/2024 09:24:08 09/13/2024 11:56:55 Obesity [id number] E66.9 Advised patient that working to achieve a healthy body weight is very important for fdc health and prevention of diseaseGiv en goal of 30min of exercise 5x/weekPat ient denies any family history of MEN Syndrome. Denies any personal history of medullary thyroid cancer or other endocrine cancers including pancreatic or adrenal or other cancers.Di scussed calorie restrictio n and given daily calorie restrictio n based on current age, weight and activity level.Taki ng was zepbound 7.5mg once weekly. Tolerating well. Denies any negative side effects.Hx prediabete s and ARTURO.Insura nce STOPPED covering.N ow taking tirzepatid e 60u weekly. Tolerating well. Denies any negative side effects.Wi ll send zepbound 10mg as insurance may cover higher dose beyond titrating dose.If covered STOP tirzepatid e and START zepbound.O therwise, continue tirzepatid e 60u weekly.Dis cussed medication use and potential side effect including n/v, constipati on, diarrhea, acid reflux, and rarely pancreatit is.Calorie Goal: 6742-7396 hayder/dayDis cussed other weight loss interventi ons including weight loss medicine and/or weight loss surgery.Antonio burns counselled and understand s medication used is a compounded form of GLP-1 sourced from a reputable [facility] pharmacy. Patient understand s the potential risks involved in using compounded medication s. Patient agrees to follow up for close monitoring for response and adjustment s of treatment plan.The addition of methylcoba jada is clinically necessary 2/2 the patient experienci ng persistent fatigue and lethargy, which may be indicative of suboptimal B12 levels or impaired cellular energy metabolism . The commercial ly available product does not provide methylcoba jada, which plays a critical role in mitochondr ial function and neurotrans mitter synthesis. Given the patient's symptoms, the compounded formulatio n is required to enhance therapeuti c efficacy and improve overall energy levels and well-being . 92118 CIRO SOLIS APRN Main Office [address] [place] [address] 10/07/2024 08:01:46 10/07/2024 13:11:02 Obesity [id number] E66.9 Advised patient that working to achieve a healthy body weight is very important for fdc health and prevention of diseaseGiv en goal of 30min of exercise 5x/weekPat ient denies any family history of MEN Syndrome. Denies any personal history of medullary thyroid cancer or other endocrine cancers including pancreatic or adrenal or other cancers.Di scussed calorie restrictio n and given daily calorie restrictio n based on current age, weight and activity level.Taki ng zepbound 10mg weekly as prescribed . Tolerating well. Denies any negative side effects.-2 lb since previous visit.Woul d like to continue current dose.Guadalupe nue zepbound 10mg weekly.Dis cussed medication use and potential side effect including n/v, constipati on, diarrhea, acid reflux, and rarely pancreatit is.Calorie Goal: 7301-2517 hayder/dayDis cussed other weight loss interventi ons including weight loss medicine and/or weight loss surgery. 07602 Crow Segura MD Main Office [address] [place] [address] 10/22/2024 07:59:00 10/22/2024 10:44:41 Obesity 319480028 E66.9 Advised patient that working to achieve a healthy body weight is very important for fdc health and prevention of diseaseGiv en goal of 30min of exercise 5x/weekPat ient denies any family history of MEN Syndrome. Denies any personal history of medullary thyroid cancer or other endocrine cancers including pancreatic or adrenal or other cancers.Di scussed calorie restrictio n and given daily calorie restrictio n based on current age, weight and activity level.Taki ng zepbound 10mg weekly as prescribed . Tolerating well. Denies any negative side effects.-2 lb since previous visit.Woul d like to continue current dose.Guadalupe nue zepbound 10mg weeklyPati ent script was rejected on October 06. Patient has reached out to company and her script is approved through September 2025.Discu ssed medication use and potential side effect including n/v, constipati on, diarrhea, acid reflux, and rarely pancreatit is.Calorie Goal: 4695-8417 hayder/dayDis cussed other weight loss interventi ons including weight loss medicine and/or weight loss surgery. 00446 CIRO SOLIS APRN Main Office [address] [place] [address] 11/09/2024 08:06:26 11/09/2024 10:08:56 Obesity [id number] E66.9 Advised patient that working to achieve a healthy body weight is very important for fdc health and prevention of diseaseGiv en goal of 30min of exercise 5x/weekPat ient denies any family history of MEN Syndrome. Denies any personal history of medullary thyroid cancer or other endocrine cancers including pancreatic or adrenal or other cancers.Di scussed calorie restrictio n and given daily calorie restrictio n based on current age, weight and activity level.Taki ng zepbound 10mg weekly as prescribed . Tolerating well. Denies any negative side effects.-2 lb since previous visit.Woul d like to continue current dose.Guadalupe nue zepbound 10mg weeklyDisc ussed medication use and potential side effect including n/v, constipati on, diarrhea, acid reflux, and rarely pancreatit is.Calorie Goal: 0780-0747 hayder/dayDis cussed other weight loss interventi ons including weight loss medicine and/or weight loss surgery. 38956 CIRO SOLIS APRN Main Office [address] [place] [address] 12/29/2024 09:48:25 12/29/2024 11:55:01 Obesity 364100459 E66.9 Advised patient that working to achieve a healthy body weight is very important for fdc health and prevention of diseaseGiv en goal of 30min of exercise 5x/weekPat ient denies any family history of MEN Syndrome. Denies any personal history of medullary thyroid cancer or other endocrine cancers including pancreatic or adrenal or other cancers.Di scussed calorie restrictio n and given daily calorie restrictio n based on current age, weight and activity level.Taki ng zepbound 10mg weekly as prescribed . Tolerating well. Denies any negative side effects.-2 lb since previous visit.Woul d like to continue current dose.Guadalupe nue zepbound 10mg weeklyDisc ussed medication use and potential side effect including n/v, constipati on, diarrhea, acid reflux, and rarely pancreatit is.Calorie Goal: 1145-7805 hayder/dayDis cussed other weight loss interventi ons including weight loss medicine and/or weight loss surgery. Health Concerns Section Related Observation LastModified by Organization Detai ls LastModified Time None Recorded Concern Status LastModified by Organization Details LastModified Time None Recorded Advance Directives Directive None Recorded Payers Insurance Date Sequence Insurance Name Policy Number Policy Michel Covered Member ID Michel Member ID Guarantor Name 01/22/2025 1 [employer] [id number] R Eufemia Correia [id number] 28 Eufemia Correia Notes Date Note Type Note Provider Name and Address Organization Details Recorded Time 09/13/2024 text/html Patient presents for follow up on weight loss via telehealth. Both parties present in the [facility] during visit. Patient consents to treatment via telehealth. Crow Segura MD [address] [place] [address], [address] [place] [address], [facility] 09/15/2024 09:36:28 10/07/2024 text/html Patient presents for follow up on weight loss via telehealth. Both parties present in the [facility] during visit. Patient consents to treatment via telehealth. Crow Segura MD [address] [place] [address], [address] [place] [address], [facility] 10/11/2024 08:40:46 10/22/2024 text/html ROS as noted in the HPI Patient presents via telehealth. Both parties present in [facility] during visit. Patient consented to treatment via telehealth. presents for weight loss Crow Segura MD [address] [place] [address], [address] [place] [address], [facility] 10/22/2024 09:45:04 11/09/2024 text/html Patient presents for follow up on weight loss via telehealth. Both parties present in the [facility] during visit. Patient consents to treatment via telehealth. Crow Segura MD [address] [place] [address], [address] [place] [address], [facility] 11/15/2024 14:25:07 12/29/2024 text/html Patient presents for follow up on weight loss via telehealth. Both parties present in the [facility] during visit. Patient consents to treatment via telehealth. CIRO SOLIS APRN [address] [place], [address], [facility] 12/29/2024 11:45:38 OBGyn Episode No OBEpisode recorded.
--- OUTSIDE RECORDS SUMMARY | 2025-01-25 11:51 | XMS_ITS | Continuity of Care Document ---
Author Organization [facility], Main Office Address [address] [place] [address] Assessment No assessment recorded. Plan of Treatment Reminders Order Date Submit Date Provider Last Modified By Organization Details Last Modified Time Details Appointments None recorded. Lab None recorded. Referral None recorded. Procedures None recorded. Surgeries None recorded. Imaging None recorded. Medication Orders Zepbound 10 mg/0.5 mL subcutaneou s pen injector 2024 025 [facility]91, [address], [address], 5 11:25:40 Patient TargetsNo targets recorded. Patient InstructionsNo instructions recorded. Reason for Referral None Reported. Problems Name Problem SNOMED Code Status Onset Date Resolution Date Notes Provider Name and Address Organization Details Recorded Time Prediabetes 397258809 Active 2023 Crow Segura MD [address] [place], [address], [facility] 4 09:42:02 Obstructive sleep apnea syndrome 57857772 Active 2024 SAUL SOLIS APRN [address] [place], [address], [facility] 5 13:42:23 Problem Notes None recorded. Procedures Surgical History Date Name Laterality Status Provider Name and Address Organization Details Recorded Time 02/17/20 08 Bilateral Mastectomy completed [facility] 08/15/2023 10:29:17 04/07/19 [address] [facility] 08/15/2023 10:29:17 04/07/19 07 Oophorectomy completed Demetrice Th[facility] 08/15/2023 10:29:17 Cholecystectomy completed Demetrice Thacker [facility] 08/15/2023 10:29:17 Tonsillectomy completed Demetrice Thacker [facility] 08/15/2023 10:29:17 Adenoid Surgery completed Demetrice Thacker [facility] 08/15/2023 10:29:17 Imaging Results None recorded. Procedure Notes None recorded. Medical Equipment None Reported. Allergies Allergen ID Allergen Name Allergen Category Reaction Reaction Severity Criticality Documentation Date Start Date Code Code System Note Provider Name and Address Organization Details Recorded Time 1940 Product containin g penicilli n (product) medicatio n hives moderate Not available 08/15/2023 47900 8001 SNOMED Demetrice serrano CE Thacker [facility] 10:29:16 Medications Name Sig Start Date Stop Date Status Note LastModified by Organization Details LastModified Time TIRZEPATIDE - LCP 40 u weekly 2023 active Not Available Not Available Not Avai lable TIRZEPATIDE COMPOUNDED 30 u subq l arm [facility] 2023 active Not Available Not Available Not Avai lable TIRZEPATIDE COMPOUNDED 40 u weekly 2023 active Not Available Not Available Not Avai lable TIRZEPATIDE COMPOUNDED 30 u subq R arm by pavel 8 2023 active Not Available Not Available [...] TIRZEPATIDE COMPOUNDED 30 u subq l arm [facility] 2023 active Not Available Not Available Not Avai lable TIRZEPATIDE COMPOUNDED 20u subq larm by Pavel 8 2023 active Not Available Not Available Not Avai lable TIRZEPATIDE COMPOUNDED 20u subq Rarm by [email or web address] 17 2023 active Not Available Not Available Not Avai lable TIRZEPATIDE COMPOUNDED 40 u weekly 2023 active Not Available Not Available Not Avai lable TIRZEPATIDE COMPOUNDED 20 units subq upper r arm [email or web address] 2023 active Not Available Not [...] 2024 active Not Available Not Available Not Chito perry Vitals Date Recorded Body height Body mass index (BMI) Body weight Provider Name and Address Organization Details Last Updated DateTime 12/29/2024 166.37 cm 25.4 kg/m2 15806.82 g SAUL SOLIS, ELDA [address] [place], [address] 12/29/2024 11:24:42 Social History Question Answer Notes LastModified by Organizat ion Details LastModified Time Are You Blind Or Do You Have Difficulty Seeing? No [email or web address] Information not available 08/15/2023 Are You Deaf Or Do You Have Serious Difficulty Hearing? No [id number] Information not available 08/15/2023 Are There Any Guns Present In Your Home? Yes [email or web address] Information not available 08/15/2023 Are There Any Occupational Health Risks Where You Work? No [email or web address] Information not available 08/15/2023 Are You Passively Exposed To Smoke? No [id number] Information no t available 08/15/2023 Are There Any Smokers In Your House? No [email or web address] Information not available 08/15/2023 Are You Currently In School? No [id number] Information not available 08/15/2023 Sex: Unknown Functional Status Question Answer Note LastModified by Organization D etails LastModified Time Are you currently employed? No [email or web address] Information not available 08/15/2023 Are you able to care for yourself independently? Yes [email or web address] Information not available 08/15/2023 Mental Status Question Answer Note LastModified by Organization D etails LastModified Time Do you have difficulty concentrating, remembering or making decisions? No [email or web address] Information no t available 08/15/2023 Family History Relationship Description Onset Age of this Age Resolved Age Notes LastModified by Organization Details LastModified Time Mother Malignant neoplasm of ovary 60 [id number] Not available 10:29:16 Mother BRCA1 mutation carrier detection test 57 60 [id number] Not available 10:29:16 Maternal Grandfather Harmful pattern of use of alcohol 22 65 [email or web address] Not available 10:29:16 Father Diabetes mellitus 55 [id number] Not available 10:29:16 Medical History Condition Response Breast Problem Y Muscle, Joint, or Bone Problems Y Arthritis Y Infertility Y Liver Disease Y Varicosities Y Thyroid Problems Y Chicken Pox Y Lung Disease Y Hypothyroidism Y Gynecological History Statement/Question Response Abnormal Pap N Sterilization HPV Vaccine N Age at Menarche 9 Age at First Child 30 N Obstetrics History GPAL:G 0 P 0 0 0 0 Immunizations Vaccine Type Date Status Note Provider Nam e and Address Organization Details Recorded Time [facility] 10:29:18 SARS-COV-2 (COVID-19) vaccine, UNSPECIFIED 1 [facility] 10:29:18 Tdap 2 [facility] 10:29:18 varicella 0 completed Demetrice Badillo [facility] 08/15/2023 10:29:18 Hep B, unspecified formulation 1 [facility] 10:29:18 zoster live 2 completed Demetrice Badillo [facility] 08/15/2023 10:29:18 Influenza, split virus, trivalent, preservative 3 [facility] 10:29:18 D[facility]P 0 [facility] 10:29:18 zoster recombinant 1 completed Eleanor Tobin [facility] 09/24/2023 10:36:49 zoster recombinant 9 mecca Tobin [facility] 09/24/2023 10:36:49 yellow fever live 2 mecca Tobin [facility] 09/24/2023 10:36:49 Past Encounters Encounter ID Performer Location Encounter Start Date Encounter Closed Date Diagnosis/Indication Diagnosis SNOMED-CT Code Diagnosis ICD10 Code Diagnosis IMO Codes Diagnosis Note [id number] SAUL SOLIS APRN Main Office [address] [place] [address] 12/29/2024 09:48:25 12/29/2024 11:55:01 Obesity 501147235 E66.9 Advised patient that working to achieve a healthy body weight is very important for halfway health and prevention of diseaseGiv en goal [...] acid reflux, and rarely pancreatit is.Calorie Goal: 8030-0215 hayder/dayDis cussed other weight loss interventi ons including weight loss medicine and/or weight loss surgery. Health Concerns Section Related Observation LastModified by Organization Detai ls LastModified Time None Recorded Concern Status LastModified by Organization Details LastModified Time None Recorded Payers Encounter Date Sequence Insurance Name Policy Number Policy Michel Covered Member ID Michel Member ID Guarantor Name 12/29/2024 1 [place] [id number] R Eufemia Correia [id number] Eufemia Beal Correia Notes Date Note Type Note Provider Name and Address Organization Details Recorded Time 12/29/2024 text/html Patient presents for follow up on weight loss via telehealth. Both parties present in the [facility] during visit. Patient consents to treatment via telehealth. SAUL SOLIS APRN [address] [place], [address], [facility] 12/29/2024 11:45:38 OBGyn Episode No OBEpisode recorded.
--- OUTSIDE RECORDS SUMMARY | 2025-01-25 11:51 | XMS_ITS | Clinical Summary ---
[facility] Address [address] [place] [address] Care Team Providers Care Dungeon Master Name Role Phone Nesha Win MD Primary Care Provider [phone] Allergies Active Allergy Reactions Criticality Noted Date [...] VACCINE Completed 04/07/2021, 06/0 04/2020, 02/18/2019 Insurance [id number] PPO Care Teams Dungeon Master Relationship Specialty Start Date End Date Nesha Win MD [address] [place] [address] PCP - General Internal Medicine 08/11/18
--- NOTE | 2025-01-25 12:31 | EXP.HP ---
History of Present Illness *History of present illness: Adapted from Dr. Galarza's H&P note: Patient is a 59-year-old female who had developed onset of left lower quadrant pain approximately 7 PM on 01/24/2025 after she had been in yoga class. She had developed some diffuse abdominal bloating and nausea. She has got a prior history of laparoscopic cholecystectomy and laparoscopic assisted vaginal hysterectomy. Pain was severe and rated as an 8 out of 10. She presented to the emergency department. 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 Attempts were made at reduction without success. Surgery was consulted. CBC, CMP unremarkable. [facility] Disclaimer: The information contained in this section may have been updated after the patient was seen, as this information can be updated by other users. Medical History (Updated 01/25/25 @ 04:58 by Sarah Mejia RN) Hypothyroidism Family History (Updated 01/25/25 @ 04:58 by Sarah Mejia RN) Mother Ovarian cancer Other Diabetes Heart disease Social History (Updated 01/25/25 @ 04:56 by Sarah Mejia RN) Smoking Status: Never smoker second hand exposure: No alcohol intake: current alcohol intake frequency: a few times a month substance use type: denies use current occupational status: employed Travel in the last 8 weeks?: None housing: house caffeine: Yes Have you lived/traveled outside US in past 30 days?: No Contact w/someone who lives/traveled outside US past 30 days?: No Exposure to someone with infectious disease in past 14 days?: No Do you have a fever (greater than 100.4 F or 38 C)?: No Have you tested positive for COVID-19?: No Exposed to someone with COVID-19 in past 14 days?: No Do you have a sore throat?: No Do you have a cough?: No Do you have any weakness?: No Are you experiencing any nausea/vomitting?: No Do you have any diarrhea?: No Are you experiencing any unusual bleeding?: No Do you have any muscle aches/pain?: No Do you have any abdominal pain?: No Are you experiencing loss of taste or smell?: No Other Medical History Have you received the Flu Vaccine for this season: No Have you received the Pneumonia Vaccine: Yes Meds Home Medications and Allergies Home Medications ?Medication ?Instructions ?Recorded ?Confirmed ?Type bupropion HCl 150 mg 24 hr tablet, 150 mg PO DAILY 01/25/25 01/25/25 History extended release celecoxib 200 mg capsule 200 mg PO DAILY 01/25/25 01/25/25 History levothyroxine 88 mcg tablet 88 mcg PO DAILY 01/25/25 01/25/25 History omeprazole 20 mg capsule,delayed 20 mg PO DAILY 01/25/25 01/25/25 History release tirzepatide (weight loss) 10 10 mg SQ WEEKLY 01/25/25 01/25/25 History mg/0.5 mL subcutaneous pen injector (Zepbound) New Prescriptions to Start Prescriptions: Allergies Allergy/AdvReac Type Severity Reaction Status Date / Time Penicillins Allergy Mild Hives Verified 04/04/22 09:13 Exam Data for Last 24 hours Vital signs and Labs for Last 24 Hours: Temp Pulse Resp BP Pulse Ox O2 Del Method O2 Flow Rate 97.9 F 78 16 107/66 L 95 Room Air 2 01/25/25 06:50 01/25/25 07:20 01/25/25 07:20 01/25/25 07:20 01/25/25 07:20 01/25/25 11:00 01/25/25 04:04 Laboratory Results - last 24 hr 01/24/25 22:20: Urine Color Yellow, Urine Appearance Clear, Urine pH 6.0, Ur Specific [place] 1.020, Urine Protein Negative, Urine Glucose (UA) Negative, Urine Ketones Trace, Urine Blood Negative, Urine Nitrate Negative, Urine Bilirubin Negative, Urine Urobilinogen 0.2, Ur Leukocyte Esterase Trace, Urine RBC 3-5, Urine WBC 5-10, Ur Squamous Epith Cells 3-5, Urine Bacteria 1+, Urine Mucus 1+ 01/24/25 22:28: WBC 8.4, RBC 5.35, Hgb 15.2, Hct 45.6, MCV 85.2, MCH 28.4, MCHC 33.3, RDW 13.3, Plt Count 327, MPV 9.5, Neut % (Auto) 60.2, Lymph % (Auto) 30.7, [place] % (Auto) 5.9, Eos % (Auto) 2.3, Baso % (Auto) 0.7, Neut # (Auto) 5.0, Lymph # (Auto) 2.6, [place] # (Auto) 0.5, Eos # (Auto) 0.2, Baso # (Auto) 0.1, Sodium 139, Potassium 3.8, Chloride 101, Carbon Dioxide 29, Anion Gap 12.8, BUN 11, Creatinine 0.90, Estimated Creat Clear 75, Estimated GFR 64, Est GFR ( Amer) 78, Glucose 98, Calcium 9.2, Total Bilirubin 0.7, AST 28, ALT 15, Alkaline Phosphatase 106, Total Protein 8.2 D, Albumin 4.5, Globulin 3.7 H, Albumin/Globulin Ratio 1.2, Lipase 104 01/25/25 05:40: WBC 8.7, RBC 4.81, Hgb 13.7, Hct 40.9, MCV 85.0, MCH 28.3, MCHC 33.3, RDW 13.4, Plt Count 246, MPV 9.6, Neut % (Auto) 90.3 H, Lymph % (Auto) 7.2 L, [place] % (Auto) 1.3 L, Eos % (Auto) 0.1, Baso % (Auto) 0.5, Neut # (Auto) 7.8, Lymph # (Auto) 0.6 L, [place] # (Auto) 0.1, Eos # (Auto) 0.0, Baso # (Auto) 0.0, Sodium 138, Potassium 4.4, Chloride 103, Carbon Dioxide 28, Anion Gap 11.4, BUN 9, Creatinine 0.80, Estimated Creat Clear 84, Estimated GFR 73, Est GFR ( Amer) 89, Glucose 108 H, Calcium 8.4, Magnesium 1.8, Total Bilirubin 0.4, AST 25, ALT 13, Alkaline Phosphatase 88, Total Protein 6.5, Albumin 3.6 D, Globulin 2.9, Albumin/Globulin Ratio 1.2 I & O for Last 24 hours: Intake & Output 01/22/25 01/23/25 01/24/25 01/25/25 23:59 23:59 23:59 23:59 Intake Total 1750 / 1750 Output Total 400 / 400 Balance 1350 / 1350 Weight 70.307 kg Constitutional Constitutional: no acute distress *Routine HEENT Exam Head: Present normocephalic Eye: Present EOMI and PERRL ENT: Present mucous membranes moist *Routine Neck Exam Neck: Present supple; Absent lymphadenopathy *Routine Respiratory Exam Respiratory: Present CTA bilaterally *Routine Cardiovascular Exam Cardiovascular: Present RRR *Routine Abdominal Exam Abdominal: Present soft and normoactive bowel sounds; Absent tenderness *Routine Rectal Exam Rectal:: deferred *Routine Genitalia Exam Genitalia:: deferred *Routine Extremities Exam Extremities: Absent cyanosis, clubbing or edema Comments: Hypoactive bowel movements *Routine Skin Exam Skin: Present warm; Absent rash *Routine Neurological Exam Neurological: Present alert and oriented X3 Assessment and Plan *Assessment and plan (1) Complete small bowel obstruction: Status: Acute Category: Medical Code(s): K56.601 - Complete intestinal obstruction, unspecified as to cause (2) Irreducible Spigelian hernia: Status: Acute Category: Medical Code(s): K43.6 - Other and unspecified ventral hernia with obstruction, without gangrene Plan Eufemia Nelson is a 59-year-old female with a history of multiple abdominal surgeries including hysterectomy, cholecystectomy presented with left lower quadrant pain and was admitted after surgical repair for incarcerated left spigelian hernia and complete bowel obstruction. #Incarcerated left spigelian hernia, resolved #Complete bowel obstruction ? General Surgery consulted, s/p open repair of left incarcerated spigelian hernia on 01/25/2025. However, patient continued to have small bowel obstruction. ? Today, patient states her abdominal pain is improved but has not had flatus, bowel movements. General surgery evaluated, started NG tube with continuous suction which is now having output. ? Discussed with general surgery, will continue n.p.o. with ice chips and continuous NG tube suction until tomorrow. ? Will encourage ambulation once patient is off continuous NG tube suction. ? Continue serial abdominal exams, follow-up on flatus and bowel movements. ? Started LR at 75 mL/h. ? Continue [place], morphine as needed for pain control. #Anxiety/depression #Hypothyroidism #GERD ? Started IV Protonix 40 mg nightly. ? Started IV levothyroxine 88 mcg daily. ? Hold home appropriate as patient is NPO. Full code DVT prophylaxis: IPC's
[2025-01-25 13:02] LABS: Microscopic,Cath URINE MICROSCOPIC (MICROSCOPIC)
[2025-01-25 17:01] LABS: Appearance,Urine/Cath CLEAR (Clear); Bilirubin,Cath Negative (Negative); Blood, Urine/Cath Negative (Negative); Color,Urine/Cath YELLOW (Yellow); Glucose,Urine/Cath (UA) Negative (Negative); Ketones,Urine/Cath 1+ (Negative); Leukocyte Esterase,Cath Negative (Negative); Nitrate,Cath Negative (Negative); PH,Urine/Cath 6.0 (5.0-8.5); Protein,Urine/Cath Negative (Negative); Specific Gravity, Urine/Cath 1.010 (1.005-1.030); Urobilinogen,Cath 0.2 EU/dl (0.2)
--- NOTE | 2025-01-25 19:33 | PC.NURSE ---
NG disconnected from wall suction, attached to gravity drainage bag. Indwelling catheter removed at 1830 per MD order. Patient got up and walked the hallways with no issues. patient has denied abd pain or nausea/vomiting during my shift.
[2025-01-25] MEDS: PANTOPRAZOLE 40MG VIAL 40 MG IV (20:50)
[2025-01-25] MEDS: HYDROCODONE/APAP 5/325 MG TABLET 1 TAB PO (20:50)
[2025-01-25] MEDS: SODIUM CHLORIDE 0.9% 10ML VIAL 10 ML IV (20:50)
--- NOTE | 2025-01-25 21:03 | PC.NURSE ---
NG tube @68cm. gastric sounds auscultated and gastric contents aspirated. Pt voided 100ml.
[2025-01-26] VITALS (7 sets, daily range): BP systolic 104–134; BP diastolic 66–78; PULSE 74–93; RESP 16–18; TEMP 36.3–37.1; O2SAT 93–98; BMI 26.8
[2025-01-26] MEDS: HYDROCODONE/APAP 5/325 MG TABLET 1 TAB PO ×3 (00:56→16:10)
[2025-01-26] MEDS: LEVOTHYROXINE SODIUM 100 MCG VIAL 88 MCG IV (06:34)
[2025-01-26 06:44] LABS: Hematocrit 39.4 % (37.0-47.0); Hemoglobin 12.7 g/dL (12.2-16.2); Immature Granulocytes % 0.3 %; Mean Corpuscular HGB Conc 32.2 g/dL (31.8-35.4); Mean Corpuscular Hemoglobin 27.9 pg (27.0-31.2); Mean Corpuscular Volume 86.4 fl (81-99); Nucleated Red Blood Cells % 0 %; Platelet Count 226 K/mm3 (142-424); Red Blood Count 4.56 M/mm3 (4.20-5.40); Red Cell Distribution Width-SD 41.7 fL; White Blood Count 6.0 K/mm3 (4.8-10.8)
[2025-01-26 06:45] LABS: Albumin Level 3.3 g/dl (3.5-5.0); Chloride 101 mmol/L (98-107); Potassium 3.7 mmoL/L (3.5-5.1); Sodium 138 mmol/L (136-145)
[2025-01-26 06:47] LABS: Alanine Aminotransferase 9 U/L (12-78); Aspartate Amino Transferase 25 U/L (14-36); Blood Urea Nitrogen 11 mg/dl (7-17); Creatinine Clearance Estimated 77 mL/min (50-200); Creatinine,Serum 0.90 mg/dl (0.52-1.04); Estimated Glomerular Filt Rate 64 ml/min (>60); GFR (African American) 78 ML/MIN (>60)
[2025-01-26 06:48] LABS: Albumin/Globulin Ratio 1.2 (1.1-1.8); Alkaline Phosphatase 79 U/L (38-126); Anion Gap 8.7 mEq/L (5-15); Bilirubin,Total 0.8 mg/dl (0.2-1.3); Calcium 8.1 mg/dl (8.4-10.2); Carbon Dioxide 32 mmol/L (22.0-30.0); Globulin 2.8 g/dL (1.3-3.2); Glucose 79 mg/dl (74-100); Magnesium 2.0 mg/dl (1.6-2.3); Total Protein,Serum 6.1 g/dl (6.3-8.2)
--- NOTE | 2025-01-26 09:02 | P.PN_ITS ---
Subjective Narrative: Only complaint is some dysuria. Tolerated nasogastric tube to bag drain. Exam Data for Last 24 hours Vital signs and Labs for Last 24 Hours: Temp Pulse Resp BP Pulse Ox O2 Del Method O2 Flow Rate 97.6 F 74 17 116/66 95 Room Air 2 01/26/25 08:00 01/26/25 08:00 01/26/25 08:00 01/26/25 08:00 01/26/25 08:00 01/26/25 08:00 01/25/25 04:04 Laboratory Results - last 24 hr 01/25/25 12:55: Urine Color Yellow, Urine Appearance Clear, Urine pH 6.0, Ur Specific [place] 1.010, Urine Protein Negative, Urine Glucose (UA) Negative, Urine Ketones 1+, Urine Blood Negative, Urine Nitrate Negative, Urine Bilirubin Negative, Urine Urobilinogen 0.2, Ur Leukocyte Esterase Negative, Urine RBC None, Urine WBC None, Ur Squamous Epith Cells None, Urine Bacteria None 01/26/25 06:02: WBC 6.0 D, RBC 4.56, Hgb 12.7, Hct 39.4, MCV 86.4, MCH 27.9, MCHC 32.2, RDW 13.4, Plt Count 226, MPV 9.8, Neut % (Auto) 55.4, Lymph % (Auto) 34.4, [place] % (Auto) 8.4, Eos % (Auto) 0.8, Baso % (Auto) 0.7, Neut # (Auto) 3.3, Lymph # (Auto) 2.1, [place] # (Auto) 0.5, Eos # (Auto) 0.1, Baso # (Auto) 0.0, Sodium 138, Potassium 3.7, Chloride 101, Carbon Dioxide 32 H, Anion Gap 8.7, BUN 11, Creatinine 0.90, Estimated Creat Clear 77, Estimated GFR 64, Est GFR ( Amer) 78, Glucose 79, Calcium 8.1 L, Magnesium 2.0 D, Total Bilirubin 0.8, AST 25, ALT 9 L D, Alkaline Phosphatase 79, Total Protein 6.1 L, Albumin 3.3 L, Globulin 2.8, Albumin/Globulin Ratio 1.2 I & O for Last 24 hours: Intake & Output 01/23/25 01/24/25 01/25/25 01/26/25 11:59 11:59 11:59 11:59 Intake Total 1750 / 1750 950 / 950 Output Total 400 / 1700 2100 / 2100 Balance 1350 / 50 -1150 / -1150 Weight 155 lb 160 lb 12.8 oz *Routine Abdominal Exam Abdominal: Present soft Comments: Dressings dry and intact. Progress Note: A&P Assessment and plan (1) Complete small bowel obstruction: Status: Acute (2) Irreducible Spigelian hernia: Status: Acute Assessment and Plan Assessment and Plan for All Diagnoses:: DC NG tube. Clear liquid diet. Preoperative and intraoperative urinalysis done during [place] placement are unremarkable. Decision to repeat urinalysis deferred to hospitalist.
--- NOTE | 2025-01-26 09:55 | PC.NURSE ---
NG tube d/c at 0945, patient currently sipping water.
--- NOTE | 2025-01-26 16:13 | P.PN_ITS ---
Subjective *Date: 01/26/25 *Time: 16:13 Interval history: Patient feeling better today, passing flatus. No bowel movements yet. NG tube discontinued, tolerating liquid diet. Follow-up bowel movements. Exam Data for Last 24 hours Vital signs and Labs for Last 24 Hours: Temp Pulse Resp BP Pulse Ox O2 Del Method O2 Flow Rate 97.8 F 79 16 116/68 97 Room Air 2 01/26/25 11:37 01/26/25 11:37 01/26/25 11:37 01/26/25 11:37 01/26/25 11:37 01/26/25 15:00 01/25/25 04:04 Laboratory Results - last 24 hr 01/25/25 12:55: Urine Color Yellow, Urine Appearance Clear, Urine pH 6.0, Ur Specific [place] 1.010, Urine Protein Negative, Urine Glucose (UA) Negative, Urine Ketones 1+, Urine Blood Negative, Urine Nitrate Negative, Urine Bilirubin Negative, Urine Urobilinogen 0.2, Ur Leukocyte Esterase Negative, Urine RBC None, Urine WBC None, Ur Squamous Epith Cells None, Urine Bacteria None 01/26/25 06:02: WBC 6.0 D, RBC 4.56, Hgb 12.7, Hct 39.4, MCV 86.4, MCH 27.9, MCHC 32.2, RDW 13.4, Plt Count 226, MPV 9.8, Neut % (Auto) 55.4, Lymph % (Auto) 34.4, [place] % (Auto) 8.4, Eos % (Auto) 0.8, Baso % (Auto) 0.7, Neut # (Auto) 3.3, Lymph # (Auto) 2.1, [place] # (Auto) 0.5, Eos # (Auto) 0.1, Baso # (Auto) 0.0, Sodium 138, Potassium 3.7, Chloride 101, Carbon Dioxide 32 H, Anion Gap 8.7, BUN 11, Creatinine 0.90, Estimated Creat Clear 77, Estimated GFR 64, Est GFR ( Amer) 78, Glucose 79, Calcium 8.1 L, Magnesium 2.0 D, Total Bilirubin 0.8, AST 25, ALT 9 L D, Alkaline Phosphatase 79, Total Protein 6.1 L, Albumin 3.3 L, Globulin 2.8, Albumin/Globulin Ratio 1.2 I & O for Last 24 hours: Intake & Output 01/23/25 01/24/25 01/25/25 01/26/25 23:59 23:59 23:59 23:59 Intake Total 2650 / 2650 1420 / 1420 Output Total 1800 / 1950 1400 / 1400 Balance 850 / 700 Weight 70.307 kg 72.938 kg Microbiology Reports for the Last 24 Hours: Microbiology 01/24/25 22:20 Urine,Clean Catch Urine Culture - Final No growth. Constitutional Constitutional: no acute distress *Routine HEENT Exam Head: Present normocephalic Eye: Present EOMI and PERRL ENT: Present mucous membranes moist *Routine Neck Exam Neck: Present supple; Absent lymphadenopathy *Routine Respiratory Exam Respiratory: Present CTA bilaterally *Routine Cardiovascular Exam Cardiovascular: Present RRR *Routine Abdominal Exam Abdominal: Present soft Comments: Dressings dry and intact. Hypoactive bowel sounds. *Routine Extremities Exam Extremities: Absent cyanosis, clubbing or edema *Routine Skin Exam Skin: Present warm; Absent rash *Routine Neurological Exam Neurological: Present alert and oriented X3 Assessment and Plan *Assessment and plan (1) Complete small bowel obstruction: Status: Acute Category: Medical Code(s): K56.601 - Complete intestinal obstruction, unspecified as to cause (2) Irreducible Spigelian hernia: Status: Acute Category: Medical Code(s): K43.6 - Other and unspecified ventral hernia with obstruction, without gangrene Plan Eufemia Nelson is a 59-year-old female with a history of multiple abdominal surgeries including hysterectomy, cholecystectomy presented with left lower quadrant pain and was admitted after surgical repair for incarcerated left spigelian hernia and complete bowel obstruction. #Incarcerated left spigelian hernia, resolved #Complete bowel obstruction ? General Surgery consulted, s/p open repair of left incarcerated spigelian hernia on 01/25/2025. However, patient continued to have small bowel obstructio n. ? Discussed with general surgery, NG tube initially placed with minimal output. Discontinue to gravity and with ambulation patient started having flatus, improvement of bowel discomfort. ? General Surgery recommended discontinuing NG tube today. Patient tolerating clear liquid diet appropriately. Follow-up bowel movements. Discontinued IV fluids. ? Potassium, magnesium, sodium within normal limits. ? Continue to encourage ambulation. ? Continue serial abdominal exams, follow-up on bowel movements. ? Continue [place], morphine as needed for pain control. #Anxiety/depression #Hypothyroidism #GERD ? Started IV Protonix 40 mg nightly. ? Started IV levothyroxine 88 mcg daily. ? Hold home p.o. medications given SBO. Full code DVT prophylaxis: IPC's
--- NOTE | 2025-01-26 18:44 | PC.NURSE ---
IV in right wrist had to be replased due to patient c/o pain when flushed. New 22 g IV placed in the left AC
--- NOTE | 2025-01-26 20:08 | PC.NURSE ---
2003 phone Ry at off site pharmacy about the anceft IV being on time on the JUN. THe times have now been changed. JHONNY CHEUNG RN
[2025-01-26] MEDS: SODIUM CHLORIDE 0.9% 10ML VIAL 10 ML IV (20:41)
[2025-01-26] MEDS: PANTOPRAZOLE 40MG VIAL 40 MG IV (20:41)
[2025-01-27 04:00] VITALS: BP 112/69; PULSE 86; RESP 18; TEMP 36.5; O2SAT 97; BMI 27.1
[2025-01-27 06:13] LABS: Hematocrit 38.2 % (37.0-47.0); Hemoglobin 12.6 g/dL (12.2-16.2); Immature Granulocytes % 0.3 %; Mean Corpuscular HGB Conc 33.0 g/dL (31.8-35.4); Mean Corpuscular Hemoglobin 28.3 pg (27.0-31.2); Mean Corpuscular Volume 85.8 fl (81-99); Nucleated Red Blood Cells % 0 %; Platelet Count 230 K/mm3 (142-424); Red Blood Count 4.45 M/mm3 (4.20-5.40); Red Cell Distribution Width-SD 41.3 fL; White Blood Count 7.3 K/mm3 (4.8-10.8)
[2025-01-27 06:30] LABS: Albumin Level 3.4 g/dl (3.5-5.0); Chloride 98 mmol/L (98-107); Potassium 3.4 mmoL/L (3.5-5.1); Sodium 136 mmol/L (136-145)
[2025-01-27 06:32] LABS: Blood Urea Nitrogen 7 mg/dl (7-17); Creatinine Clearance Estimated 79 mL/min (50-200); Creatinine,Serum 0.90 mg/dl (0.52-1.04); Estimated Glomerular Filt Rate 64 ml/min (>60); GFR (African American) 78 ML/MIN (>60)
[2025-01-27 06:33] LABS: Alanine Aminotransferase 17 U/L (12-78); Albumin/Globulin Ratio 1.2 (1.1-1.8); Alkaline Phosphatase 73 U/L (38-126); Anion Gap 12.4 mEq/L (5-15); Aspartate Amino Transferase 24 U/L (14-36); Bilirubin,Total 0.7 mg/dl (0.2-1.3); Calcium 8.3 mg/dl (8.4-10.2); Carbon Dioxide 29 mmol/L (22.0-30.0); Globulin 2.8 g/dL (1.3-3.2); Glucose 157 mg/dl (74-100); Magnesium 1.9 mg/dl (1.6-2.3); Total Protein,Serum 6.2 g/dl (6.3-8.2)
--- NOTE | 2025-01-27 06:38 | EXP.SURG.PN ---
Subjective Narrative: Patient states that she feels a bit shaky from not eating. Tolerating clear liquids. No nausea. Passing gas. No bowel movements. Exam Data for Last 24 hours Vital signs and Labs for Last 24 Hours: Temp Pulse Resp BP Pulse Ox O2 Del Method O2 Flow Rate 97.7 F 86 18 112/69 97 Room Air 2 01/27/25 04:00 01/27/25 04:00 01/27/25 04:00 01/27/25 04:00 01/27/25 04:00 01/27/25 05:00 01/25/25 04:04 Laboratory Results - last 24 hr 01/26/25 06:02: WBC 6.0 D, RBC 4.56, Hgb 12.7, Hct 39.4, MCV 86.4, MCH 27.9, MCHC 32.2, RDW 13.4, Plt Count 226, MPV 9.8, Neut % (Auto) 55.4, Lymph % (Auto) 34.4, [place] % (Auto) 8.4, Eos % (Auto) 0.8, Baso % (Auto) 0.7, Neut # (Auto) 3.3, Lymph # (Auto) 2.1, [place] # (Auto) 0.5, Eos # (Auto) 0.1, Baso # (Auto) 0.0, Sodium 138, Potassium 3.7, Chloride 101, Carbon Dioxide 32 H, Anion Gap 8.7, BUN 11, Creatinine 0.90, Estimated Creat Clear 77, Estimated GFR 64, Est GFR ( Amer) 78, Glucose 79, Calcium 8.1 L, Magnesium 2.0 D, Total Bilirubin 0.8, AST 25, ALT 9 L D, Alkaline Phosphatase 79, Total Protein 6.1 L, Albumin 3.3 L, Globulin 2.8, Albumin/Globulin Ratio 1.2 01/27/25 05:25: WBC 7.3, RBC 4.45, Hgb 12.6, Hct 38.2, MCV 85.8, MCH 28.3, MCHC 33.0, RDW 13.2, Plt Count 230, MPV 9.8, Neut % (Auto) 68.1, Lymph % (Auto) 20.4, [place] % (Auto) 9.5 H, Eos % (Auto) 1.1, Baso % (Auto) 0.6, Neut # (Auto) 5.0, Lymph # (Auto) 1.5, [place] # (Auto) 0.7, Eos # (Auto) 0.1, Baso # (Auto) 0.0 I & O for Last 24 hours: Intake & Output 01/24/25 01/25/25 01/26/25 01/27/25 11:59 11:59 11:59 11:59 Intake Total 1750 / 1750 1999 / 2000 1300 / 1300 Output Total 400 / 1700 2800 / 2800 2650 / 2650 Balance 1350 / 50 -800 / -800 -1350 / -1350 Weight 155 lb 160 lb 12.8 oz 163 lb 1.6 oz Microbiology Reports for the Last 24 Hours: Microbiology 01/24/25 22:20 Urine,Clean Catch Urine Culture - Final No growth. *Routine Abdominal Exam Abdominal: Present soft Comments: Dressing intact Progress Note: A&P Assessment and plan (1) Complete small bowel obstruction: Status: Acute (2) Irreducible Spigelian hernia: Status: Acute Assessment and Plan Assessment and Plan for All Diagnoses:: Advance diet.
[2025-01-27 07:34] VITALS: BP 100/60; PULSE 85; RESP 16; TEMP 36.8; O2SAT 91
[2025-01-27] MEDS: LEVOTHYROXINE SODIUM 100 MCG VIAL 88 MCG IV (08:15)
[2025-01-27] MEDS: POTASSIUM CHLORIDE 20MEQ TAB 40 MEQ PO ×2 (08:16→11:05)
[2025-01-27 11:35] VITALS: BP 96/64; PULSE 83; RESP 18; TEMP 36.8; O2SAT 97
--- NOTE | 2025-01-27 15:26 | PC.NURSE ---
Addendum entered by Sandi Bronson RN 01/27/25 15:30: currently up to chair, in room. Original Note: patient a/o x4, remains on room air. encouraged ambulation. patient has ambulated in the halls and in room independently with . only c/o pain when getting out of bed. no requests for pain meds at this time. passing flatus, still no BM this shift. tolerating full liquid diet. ca
[2025-01-27 16:00] VITALS: BP 116/67; PULSE 86; RESP 17; TEMP 37; O2SAT 95
--- NOTE | 2025-01-27 16:49 | P.PN_ITS ---
Subjective *Date: 01/27/25 *Time: 16:49 Interval history: Patient tolerating full liquid diet, passing flatus, but no bowel movement as of yet. Walking around in hallways. Will continue to monitor, follow-up bowel movements. Exam Data for Last 24 hours Vital signs and Labs for Last 24 Hours: Temp Pulse Resp BP Pulse Ox O2 Del Method O2 Flow Rate 98.6 F 86 17 116/67 95 Room Air 2 01/27/25 16:00 01/27/25 16:00 01/27/25 16:00 01/27/25 16:00 01/27/25 16:00 01/27/25 16:00 01/25/25 04:04 Laboratory Results - last 24 hr 01/27/25 05:25: WBC 7.3, RBC 4.45, Hgb 12.6, Hct 38.2, MCV 85.8, MCH 28.3, MCHC 33.0, RDW 13.2, Plt Count 230, MPV 9.8, Neut % (Auto) 68.1, Lymph % (Auto) 20.4, [place] % (Auto) 9.5 H, Eos % (Auto) 1.1, Baso % (Auto) 0.6, Neut # (Auto) 5.0, Lymph # (Auto) 1.5, [place] # (Auto) 0.7, Eos # (Auto) 0.1, Baso # (Auto) 0.0, Sodium 136, Potassium 3.4 L, Chloride 98, Carbon Dioxide 29, Anion Gap 12.4, BUN 7 D, Creatinine 0.90, Estimated Creat Clear 79, Estimated GFR 64, Est GFR ( Amer) 78, Glucose 157 H D, Calcium 8.3 L, Magnesium 1.9, Total Bilirubin 0.7, AST 24, ALT 17 D, Alkaline Phosphatase 73, Total Protein 6.2 L, Albumin 3.4 L, Globulin 2.8, Albumin/Globulin Ratio 1.2 I & O for Last 24 hours: Intake & Output 01/24/25 01/25/25 01/26/25 01/27/25 23:59 23:59 23:59 23:59 Intake Total 2650 / 2650 2110 / 2350 1070 / 1070 Output Total 1800 / 1950 3800 / 3800 2150 / 2150 Balance 850 / 700 -1690 / -1450 -1080 / -1080 Weight 70.307 kg 72.938 kg 73.981 kg Constitutional Constitutional: no acute distress *Routine HEENT Exam Head: Present normocephalic Eye: Present EOMI and PERRL ENT: Present mucous membranes moist *Routine Neck Exam Neck: Present supple; Absent lymphadenopathy *Routine Respiratory Exam Respiratory: Present CTA bilaterally *Routine Cardiovascular Exam Cardiovascular: Present RRR *Routine Abdominal Exam Abdominal: Present soft Comments: Dressing intact *Routine Extremities Exam Extremities: Absent cyanosis, clubbing or edema *Routine Skin Exam Skin: Present warm; Absent rash *Routine Neurological Exam Neurological: Present alert and oriented X3 Assessment and Plan *Assessment and plan (1) Complete small bowel obstruction: Status: Acute Category: Medical Code(s): K56.601 - Complete intestinal obstruction, unspecified as to cause (2) Irreducible Spigelian hernia: Status: Acute Category: Medical Code(s): K43.6 - Other and unspecified ventral hernia with obstruction, without gangrene Plan Eufemia Nelson is a 59-year-old female with a history of multiple abdominal surgeries including hysterectomy, cholecystectomy presented with left lower quadrant pain and was admitted after surgical repair for incarcerated left spigelian hernia and complete bowel obstruction. #Incarcerated left spigelian hernia, resolved #Complete small bowel obstruction ? General Surgery consulted, s/p open repair of left incarcerated spigelian hernia on 01/25/2025. However, patient continued to have small bowel obstruction. ? NG tube initially placed with minimal output. Discontinue to gravity and with ambulation patient started having flatus, improvement of bowel discomfort. NG tube since removed. ? Discussed with general surgery, advanced to full liquid diet. Patient is having flatus, but no bowel movements as of yet. ? Continues to have hypoactive bowel sounds, but improved from yesterday. Minimal abdominal distention. ? Potassium low at 3.4, but magnesium, sodium within normal limits. ? Encouraging ambulation, patient has been walking around in the hallways. ? Continue serial abdominal exams, follow-up on bowel movements. ? Continue [place], morphine as needed for pain control. #Anxiety/depression #Hypothyroidism #GERD ? Continue IV Protonix 40 mg nightly. ? Continue IV levothyroxine 88 mcg daily. ? Hold home p.o. medications given complaints SBO. Full code DVT prophylaxis: IPC's
--- NOTE | 2025-01-27 18:49 | PC.NURSE ---
ultrasound IV placed in the right AC at 1400 due to previous left AC IV leaking
[2025-01-27 19:52] VITALS: BP 113/66; PULSE 80; RESP 16; TEMP 36.5; O2SAT 99
[2025-01-27] MEDS: PANTOPRAZOLE 40MG VIAL 40 MG IV (20:07)
[2025-01-27] MEDS: SODIUM CHLORIDE 0.9% 10ML VIAL 10 ML IV (20:07)
[2025-01-27 23:51] VITALS: BP 98/57; PULSE 86; RESP 14; TEMP 36.6; O2SAT 97
--- NOTE | 2025-01-28 03:48 | PC.NURSE ---
Alert and oriented. Ambulatory in room. 3 lap sites on abdomen, CDI, scant amount dry blood on gauze. No bowel movement this shift, bowel sounds active in all 4 quadrants. Room air. No complaints of pain this shift, patient states she only has mild pain when moving. Call light in reach.
[2025-01-28 04:00] VITALS: BP 100/67; PULSE 77; RESP 14; TEMP 36.8; O2SAT 100; BMI 26.5
[2025-01-28 06:11] LABS: Hematocrit 39.4 % (37.0-47.0); Hemoglobin 12.8 g/dL (12.2-16.2); Immature Granulocytes % 0.2 %; Mean Corpuscular HGB Conc 32.5 g/dL (31.8-35.4); Mean Corpuscular Hemoglobin 27.8 pg (27.0-31.2); Mean Corpuscular Volume 85.5 fl (81-99); Nucleated Red Blood Cells % 0 %; Platelet Count 252 K/mm3 (142-424); Red Blood Count 4.61 M/mm3 (4.20-5.40); Red Cell Distribution Width-SD 40.6 fL; White Blood Count 6.4 K/mm3 (4.8-10.8)
[2025-01-28 06:22] LABS: Albumin Level 3.4 g/dl (3.5-5.0); Chloride 102 mmol/L (98-107); Potassium 4.3 mmoL/L (3.5-5.1); Sodium 134 mmol/L (136-145)
[2025-01-28 06:24] LABS: Blood Urea Nitrogen 6 mg/dl (7-17); Creatinine Clearance Estimated 86 mL/min (50-200); Creatinine,Serum 0.80 mg/dl (0.52-1.04); Estimated Glomerular Filt Rate 73 ml/min (>60); GFR (African American) 89 ML/MIN (>60)
[2025-01-28 06:25] LABS: Alanine Aminotransferase 8 U/L (12-78); Albumin/Globulin Ratio 1.1 (1.1-1.8); Alkaline Phosphatase 80 U/L (38-126); Anion Gap 6.3 mEq/L (5-15); Aspartate Amino Transferase 22 U/L (14-36); Bilirubin,Total 0.7 mg/dl (0.2-1.3); Calcium 8.5 mg/dl (8.4-10.2); Carbon Dioxide 30 mmol/L (22.0-30.0); Globulin 3.1 g/dL (1.3-3.2); Glucose 94 mg/dl (74-100); Total Protein,Serum 6.5 g/dl (6.3-8.2)
[2025-01-28 06:26] LABS: Magnesium 2.0 mg/dl (1.6-2.3)
[2025-01-28] MEDS: SODIUM CHLORIDE 0.9% 10ML VIAL 10 ML IV (06:51)
[2025-01-28] MEDS: LEVOTHYROXINE SODIUM 100 MCG VIAL 88 MCG IV (06:51)
--- NOTE | 2025-01-28 06:58 | EXP.SURG.PN ---
Subjective Narrative: Patient doing quite well. Tolerating full liquids. No nausea. No bloating. No abdominal pain. Passing gas but no flatus. Exam Data for Last 24 hours Vital signs and Labs for Last 24 Hours: Temp Pulse Resp BP Pulse Ox O2 Del Method O2 Flow Rate 98.2 F 77 14 100/67 L 100 Room Air 2 01/28/25 04:00 01/28/25 04:00 01/28/25 04:00 01/28/25 04:00 01/28/25 04:00 01/28/25 06:56 01/25/25 04:04 Laboratory Results - last 24 hr 01/27/25 05:25: Sodium 136, Potassium 3.4 L, Chloride 98, Carbon Dioxide 29, Anion Gap 12.4, BUN 7 D, Creatinine 0.90, Estimated Creat Clear 79, Estimated GFR 64, Est GFR ( Amer) 78, Glucose 157 H D, Calcium 8.3 L, Magnesium 1.9, Total Bilirubin 0.7, AST 24, ALT 17 D, Alkaline Phosphatase 73, Total Protein 6.2 L, Albumin 3.4 L, Globulin 2.8, Albumin/Globulin Ratio 1.2 01/28/25 05:35: WBC 6.4, RBC 4.61, Hgb 12.8, Hct 39.4, MCV 85.5, MCH 27.8, MCHC 32.5, RDW 13.2, Plt Count 252, MPV 9.8, Neut % (Auto) 53.2, Lymph % (Auto) 33.1, [place] % (Auto) 9.4 H, Eos % (Auto) 3.5, Baso % (Auto) 0.6, Neut # (Auto) 3.4, Lymph # (Auto) 2.1, [place] # (Auto) 0.6, Eos # (Auto) 0.2, Baso # (Auto) 0.0, Sodium 134 L, Potassium 4.3 D, Chloride 102, Carbon Dioxide 30, Anion Gap 6.3, BUN 6 L, Creatinine 0.80, Estimated Creat Clear 86, Estimated GFR 73, Est GFR ( Amer) 89, Glucose 94, Calcium 8.5, Magnesium 2.0, Total Bilirubin 0.7, AST 22, ALT 8 L D, Alkaline Phosphatase 80, Total Protein 6.5, Albumin 3.4 L, Globulin 3.1, Albumin/Globulin Ratio 1.1 I & O for Last 24 hours: Intake & Output 01/25/25 01/26/25 01/27/25 01/28/25 11:59 11:59 11:59 11:59 Intake Total 1750 / 1750 1999 / 1999 1710 / 1710 1130 / 1130 Output Total 400 / 1700 2800 / 2800 3850 / 3850 1600 / 1600 Balance 1350 / 50 -800 / -800 -2140 / -2140 -470 / -470 Weight 155 lb 160 lb 12.8 oz 163 lb 1.6 oz 159 lb 6.4 oz *Routine Abdominal Exam Comments: Some bruising at her surgical site. Otherwise incisions clean and intact. Progress Note: A&P Assessment and plan (1) Complete small bowel obstruction: Status: Acute (2) Irreducible Spigelian hernia: Status: Acute Assessment and Plan Assessment and Plan for All Diagnoses:: Discharge home
[2025-01-28 07:26] VITALS: BP 120/69; PULSE 84; RESP 18; TEMP 36.6; O2SAT 95
--- NOTE | 2025-01-28 08:22 | EXP.DC.SUM ---
General Admission date:: 01/25/25 Discharge date: 01/28/25 HPI HPI HPI: Adapted from Dr. Galarza's H&P note: Patient is a 59-year-old female who had developed onset of left lower quadrant pain approximately 7 PM on 01/24/2025 after she had been in yoga class. She had developed some diffuse abdominal bloating and nausea. She has got a prior history of laparoscopic cholecystectomy and laparoscopic assisted vaginal hysterectomy. Pain was severe and rated as an 8 out of 10. She presented to the emergency department. 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 Attempts were made at reduction without success. Surgery was consulted. CBC, CMP unremarkable. Exam Data for Last 24 hours Vital signs and Labs for Last 24 Hours: Temp Pulse Resp BP Pulse Ox O2 Del Method O2 Flow Rate 98 F 84 18 120/69 95 Room Air 2 01/28/25 07:26 01/28/25 07:26 01/28/25 07:26 01/28/25 07:26 01/28/25 07:26 01/28/25 08:00 01/25/25 04:04 Laboratory Results - last 24 hr 01/28/25 05:35: WBC 6.4, RBC 4.61, Hgb 12.8, Hct 39.4, MCV 85.5, MCH 27.8, MCHC 32.5, RDW 13.2, Plt Count 252, MPV 9.8, Neut % (Auto) 53.2, Lymph % (Auto) 33.1, [place] % (Auto) 9.4 H, Eos % (Auto) 3.5, Baso % (Auto) 0.6, Neut # (Auto) 3.4, Lymph # (Auto) 2.1, [place]zie # (Auto) 0.6, Eos # (Auto) 0.2, Baso # (Auto) 0.0, Sodium 134 L, Potassium 4.3 D, Chloride 102, Carbon Dioxide 30, Anion Gap 6.3, BUN 6 L, Creatinine 0.80, Estimated Creat Clear 86, Estimated GFR 73, Est GFR ( Amer) 89, Glucose 94, Calcium 8.5, Magnesium 2.0, Total Bilirubin 0.7, AST 22, ALT 8 L D, Alkaline Phosphatase 80, Total Protein 6.5, Albumin 3.4 L, Globulin 3.1, Albumin/Globulin Ratio 1.1 I & O for Last 24 hours: Intake & Output 01/25/25 01/26/25 01/27/25 01/28/25 23:59 23:59 23:59 23:59 Intake Total 2650 / 2650 2110 / 2350 1480 / 1780 350 / 350 Output Total 1800 / 1950 3800 / 3800 2750 / 2750 300 / 300 Balance 850 / 700 -1690 / -1450 -1270 / -970 50 / 50 Weight 72.938 kg 73.981 kg 72.303 kg Results Data Completed and Pending Labs on day of discharge: Labs from last 24 hours 01/28/25 05:35 WBC 6.4 RBC 4.61 Hgb 12.8 Hct 39.4 MCV 85.5 MCH 27.8 MCHC 32.5 RDW 13.2 Plt Count 252 MPV 9.8 Neut % (Auto) 53.2 Lymph % (Auto) 33.1 Benzie % (Auto) 9.4 H Eos % (Auto) 3.5 Baso % (Auto) 0.6 Neut # (Auto) 3.4 Lymph # (Auto) 2.1 Benzie # (Auto) 0.6 Eos # (Auto) 0.2 Baso # (Auto) 0.0 Sodium 134 L Potassium 4.3 D Chloride 102 Carbon Dioxide 30 Anion Gap 6.3 BUN 6 L Creatinine 0.80 Estimated Creat Clear 86 Estimated GFR 73 Est GFR ( Amer) 89 Glucose 94 Calcium 8.5 Magnesium 2.0 Total Bilirubin 0.7 AST 22 ALT 8 L D Alkaline Phosphatase 80 Total Protein 6.5 Albumin 3.4 L Globulin 3.1 Albumin/Globulin Ratio 1.1 DS: Diagnosis Discharge Diagnosis (1) Complete small bowel obstruction: Status: Acute Code(s): K56.601 - Complete intestinal obstruction, unspecified as to cause (2) Irreducible Spigelian hernia: Status: Acute Code(s): K43.6 - Other and unspecified ventral hernia with obstruction, without gangrene Meds Home Medications and Allergies Home Medications ?Medication ?Instructions ?Recorded ?Confirmed ?Type bupropion HCl 150 mg 24 hr tablet, 150 mg PO DAILY 01/25/25 01/25/25 History extended release celecoxib 200 mg capsule 200 mg PO DAILY 01/25/25 01/25/25 History levothyroxine 88 mcg tablet 88 mcg PO DAILY 01/25/25 01/25/25 History omeprazole 20 mg capsule,delayed 20 mg PO DAILY 01/25/25 01/25/25 History release tirzepatide (weight loss) 10 10 mg SQ WEEKLY 01/25/25 01/25/25 History mg/0.5 mL subcutaneous pen injector (Zepbound) Held on 01/28/25. Instructions: for one week post-op New Prescriptions to Start Prescriptions: Allergies Allergy/AdvReac Type Severity Reaction Status Date / Time Penicillins Allergy Mild Hives Verified 04/04/22 09:13 Discharge Plan Disposition Patient Disposition: Home, Self-Care Condition: Fair Discharge Order Discharge Orders: Discharge Order (Routine); Ordered 01/28/25 Ordered By: Brady Galarza Follow up Plan Follow up with: Nesha Win MD [Primary Care Provider, Medical] - 02/02/25 12:00 pm Brady Galarza MD [Staff Physician, General Surgery] - 02/15/25 10:00 am Prescriptions/Medication Reconciliation: Continued celecoxib 200 mg capsule 200 mg PO DAILY levothyroxine 88 mcg tablet 88 mcg PO DAILY Patient Comments: TAKE 1 TABLET BY MOUTH IN THE MORNING 30 MIN BEFORE EATING OR TAKING OTHER MEDICATIONS TO GIVE TIME FOR ABSORPTION omeprazole 20 mg capsule,delayed release(DR/EC) 20 mg PO DAILY bupropion HCl 150 mg tablet extended release 24 hr 150 mg PO DAILY Patient Comments: TAKE 1 TABLET BY MOUTH IN THE MORNING Held Zepbound 10 mg/0.5 mL pen injector 10 mg SQ WEEKLY Hold Instructions: for one week post-op Patient Comments: INJECT 1 PEN-INJECTOR SUBCUTANEOUSLY ONCE A WEEK Problem Reconciliation Problems Reviewed?: Yes Patient Discharge Instructions ACTIVITY: No heavy lifting DIET: advance to your usual diet Patient Instructions: Small Bowel Obstruction, DI for Acute Abdominal Pain, DI for Surgical Site Infection, Catheter-Associated Urinary Tract Infection Print Language: Divehi Providers Primary Care Provider: Nesha Win Admit Provider: Pramod Marcos Attending Provider: Pramod Marcos
--- NOTE | 2025-01-28 11:27 | EXP.DC.SUM ---
General Admission date:: 01/25/25 Discharge date: 01/28/25 HPI HPI HPI: Patient is a 59-year-old female who had developed onset of left lower quadrant pain approximately 7 PM on 01/24/2025 after she had been in yoga class. She had developed some diffuse abdominal bloating and nausea. She has got a prior history of laparoscopic cholecystectomy and laparoscopic assisted vaginal hysterectomy. Pain was severe and rated as an 8 out of 10. She presented to the emergency department. She underwent evaluation and was found to have small bowel obstruction secondary to apparent left lower quadrant spigelian hernia. Attempts were made at reduction without success. Surgery was consulted. . Hospital Course Hospital Course Hospital Course: Patient was seen and examined in the emergency department and found to have evidence of strangulated with possible incarcerated left lower quadrant hernia consistent with spigelian hernia. She had symptoms consistent with small bowel obstruction. Imaging confirmed hernia with findings of bowel obstruction. Arrangements were made for emergent surgical intervention. She was taken to the operating room in the very plastic parts fabricator hours of 01/25/2025 at which time she underwent diagnostic laparoscopy which revealed findings consistent with probable spigelian hernia containing a loop of bowel which was incarcerated with possible early strangulation. This was unable to be reduced laparoscopically. Incision was made over the hernia and it was able to be reduced. Hernia sac was excised and the hernia was repaired primarily. Completion laparoscopy was performed which revealed the involved loop of bowel to be somewhat inflamed but viable not requiring resection. Please see operative dictation for complete details. She was admitted postoperatively for continued management of resolved bowel obstruction. She did have nasogastric tube and Christensen catheter placed at the time of her surgery. She felt much better immediately. The following morning she had her Christensen catheter removed. Her nasogastric tube was placed to drain bag. Patient did complain of some dysuria. After she had her nasogastric tube placed to drain bag overnight it was removed the following morning. She was given a clear liquid diet. On the morning of 01/27/2025 she stated that she felt a bit shaky due to not eating. She is tolerating clear liquids without difficulty. She is passing gas with no nausea but still has not had a bowel movement. Her diet was advanced to full liquids. She tolerated this without issue. She is doing well and was discharged home on 01/28/2025. Exam Data for Last 24 hours Vital signs and Labs for Last 24 Hours: Temp Pulse Resp BP Pulse Ox O2 Del Method O2 Flow Rate 98 F 84 18 120/69 95 Room Air 2 01/28/25 07:26 01/28/25 07:26 01/28/25 07:26 01/28/25 07:26 01/28/25 07:26 01/28/25 08:00 01/25/25 04:04 Laboratory Results - last 24 hr 01/28/25 05:35: WBC 6.4, RBC 4.61, Hgb 12.8, Hct 39.4, MCV 85.5, MCH 27.8, MCHC 32.5, RDW 13.2, Plt Count 252, MPV 9.8, Neut % (Auto) 53.2, Lymph % (Auto) 33.1, [place] % (Auto) 9.4 H, Eos % (Auto) 3.5, Baso % (Auto) 0.6, Neut # (Auto) 3.4, Lymph # (Auto) 2.1, [place] # (Auto) 0.6, Eos # (Auto) 0.2, Baso # (Auto) 0.0, Sodium 134 L, Potassium 4.3 D, Chloride 102, Carbon Dioxide 30, Anion Gap 6.3, BUN 6 L, Creatinine 0.80, Estimated Creat Clear 86, Estimated GFR 73, Est GFR ( Amer) 89, Glucose 94, Calcium 8.5, Magnesium 2.0, Total Bilirubin 0.7, AST 22, ALT 8 L D, Alkaline Phosphatase 80, Total Protein 6.5, Albumin 3.4 L, Globulin 3.1, Albumin/Globulin Ratio 1.1 I & O for Last 24 hours: Intake & Output 01/25/25 01/26/25 01/27/25 01/28/25 11:59 11:59 11:59 11:59 Intake Total 1750 / 1750 2000 / 2000 1710 / 1710 1650 / 1650 Output Total 400 / 1700 2800 / 2800 3850 / 3850 1600 / 1600 Balance 1350 / 50 -800 / -800 -2140 / -2140 50 / 50 Weight 155 lb 160 lb 12.8 oz 163 lb 1.6 oz 159 lb 6.4 oz Results Data Completed and Pending Labs on day of discharge: Labs from last 24 hours 01/28/25 05:35 WBC 6.4 RBC 4.61 Hgb 12.8 Hct 39.4 MCV 85.5 MCH 27.8 MCHC 32.5 RDW 13.2 Plt Count 252 MPV 9.8 Neut % (Auto) 53.2 Lymph % (Auto) 33.1 [place] % (Auto) 9.4 H Eos % (Auto) 3.5 Baso % (Auto) 0.6 Neut # (Auto) 3.4 Lymph # (Auto) 2.1 [place] # (Auto) 0.6 Eos # (Auto) 0.2 Baso # (Auto) 0.0 Sodium 134 L Potassium 4.3 D Chloride 102 Carbon Dioxide 30 Anion Gap 6.3 BUN 6 L Creatinine 0.80 Estimated Creat Clear 86 Estimated GFR 73 Est GFR ( Amer) 89 Glucose 94 Calcium 8.5 Magnesium 2.0 Total Bilirubin 0.7 AST 22 ALT 8 L D Alkaline Phosphatase 80 Total Protein 6.5 Albumin 3.4 L Globulin 3.1 Albumin/Globulin Ratio 1.1 DS: Diagnosis Discharge Diagnosis (1) Complete small bowel obstruction: Status: Acute Code(s): K56.601 - Complete intestinal obstruction, unspecified as to cause (2) Irreducible Spigelian hernia: Status: Acute Code(s): K43.6 - Other and unspecified ventral hernia with obstruction, without gangrene Meds Home Medications and Allergies Home Medications ?Medication ?Instructions ?Recorded ?Confirmed ?Type bupropion HCl 150 mg 24 hr tablet, 150 mg PO DAILY 01/25/25 01/25/25 History extended release celecoxib 200 mg capsule 200 mg PO DAILY 01/25/25 01/25/25 History levothyroxine 88 mcg tablet 88 mcg PO DAILY 01/25/25 01/25/25 History omeprazole 20 mg capsule,delayed 20 mg PO DAILY 01/25/25 01/25/25 History release tirzepatide (weight loss) 10 10 mg SQ WEEKLY 01/25/25 01/25/25 History mg/0.5 mL subcutaneous pen injector (Zepbound) Held on 01/28/25. Instructions: for one week post-op New Prescriptions to Start Prescriptions: Allergies Allergy/AdvReac Type Severity Reaction Status Date / Time Penicillins Allergy Mild Hives Verified 04/04/22 09:13 Discharge Plan Disposition Patient Disposition: Home, Self-Care Condition: Fair Discharge Order Discharge Orders: Discharge Order (Routine); Ordered 01/28/25 Ordered By: Brady Galarza Follow up Plan Follow up with: Nesha Win MD [Primary Care Provider, Medical] - 02/02/25 12:00 pm Brady Galarza MD [Staff Physician, General Surgery] - 02/15/25 10:00 am Prescriptions/Medication Reconciliation: Continued celecoxib 200 mg capsule 200 mg PO DAILY levothyroxine 88 mcg tablet 88 mcg PO DAILY Patient Comments: TAKE 1 TABLET BY MOUTH IN THE MORNING 30 MIN BEFORE EATING OR TAKING OTHER MEDICATIONS TO GIVE TIME FOR ABSORPTION omeprazole 20 mg capsule,delayed release(DR/EC) 20 mg PO DAILY bupropion HCl 150 mg tablet extended release 24 hr 150 mg PO DAILY Patient Comments: TAKE 1 TABLET BY MOUTH IN THE MORNING Held Zepbound 10 mg/0.5 mL pen injector 10 mg SQ WEEKLY Hold Instructions: for one week post-op Patient Comments: INJECT 1 PEN-INJECTOR SUBCUTANEOUSLY ONCE A WEEK Problem Reconciliation Problems Reviewed?: Yes Patient Discharge Instructions ACTIVITY: No heavy lifting DIET: advance to your usual diet Patient Instructions: Small Bowel Obstruction, DI for Acute Abdominal Pain, DI for Surgical Site Infection, Catheter-Associated Urinary Tract Infection Print Language: Persian Providers Primary Care Provider: Nesha Win Admit Provider: Pramod Marcos Attending Provider: Pramod Marcos
--- NOTE | 2025-01-31 10:16 | SW/DCPLANNER ---
Spoke with patient on the phone. Patient stated that she is doing well. Patient stated that she is aware of her upcoming appointments. Patient stated that she was not prescribed any new medicine. Patient stated that she has no concerns or questions at this time. Tho Flowers
== END 2025-01-28 09:25 | disposition home or self-care (01) | DRG 355 ==
LOC: ER 01-25 01:13 → SDC 01-25 02:21 → 2ND 01-25 02:22
PROVIDERS: Surgery; Admitting Provider Student in an Organized Health Care Education/Training Program; Emergency Provider Student in an Organized Health Care Education/Training Program; PCP Internal Medicine; Visit Provider Student in an Organized Health Care Education/Training Program
PROC: 0WQF0ZZ Repair Abdominal Wall, Open Approach (ICD-10-PCS; CPT 49320; principal; 2025-01-25 01:00)
DX: K43.6 Other and unspecified ventral hernia with obstruction, without gangrene (principal); E03.9 Hypothyroidism, unspecified; F32.A Depression, unspecified; F41.9 Anxiety disorder, unspecified; K21.9 Gastro-esophageal reflux disease without esophagitis; Z90.49 Acquired absence of other specified parts of digestive tract; Z90.710 Acquired absence of both cervix and uterus; Z88.0 Allergy status to penicillin; Z79.890 Hormone replacement therapy; Z79.85 Long-term (current) use of injectable non-insulin antidiabetic drugs; Z79.899 Other long term (current) drug therapy
CPT/HCPCS: 36415; 74177; 80053; 81001; 83690; 83735; 85025; 87086; 99285; J0650; J1100; J2003; J2250; J2270; J2405; J2470; J2704; J2795; J3010; J7120; Q9967